=== PATIENT | female | born 1990 | race Caucasian/White ===

== ENCOUNTER 2021-07-05 10:41 | Emergency (ER) | payer OTHER, SELFPAY ==
--- OUTSIDE RECORDS SUMMARY | 2021-07-05 10:43 | XMS REPORT | Continuity of Care Document ---
:1990 Author Organization [facility] t Address [address] [place] [address] Care Team Providers Name Role Phone Asked, Pcp Primary Care Physician Unavailable Surya Attending Clinician Unavailable CHANELLE Attending Clinician Unavailable Surya Admitting Clinician Unavailable CHANELLE Admitting Clinician Unavailable Payers Payer Name Policy Type Policy Number Effective Date Expiration Date [facility] [id number] CHOICE (MEDICAID REPLACEMENT - HMO) Problems Condition Condition Condition Status Onset Resolution Last Treating Co mments Source Name Details Category Date Date Treatment Clinician Date History of History of Problem Active [facility] depression Depression 9-07 da 00:00: Medical 00 Group Candidiasi Candidiasi Problem Active [facility] s of skin s of Skin 8- da 00:00: Medical 00 Group Problem Active M [facility] care Care 8-21 da 00:00: Medical 00 Group Klebsiella Klebsiella Problem Active M [facility] cystitis Cystitis 7-25 da 00:00: Medical 00 Group Candidiasi Candidiasi Problem Active M [facility] s of s of 7-23 da vagina Vagina 00:00: Medical 00 Group Proteinuri Proteinuri Problem Active M [facility] a a 7-23 da 00:00: Medical 00 Group Bacterial Bacterial Problem Active [facility] vaginosis Vaginosis 6-21 da in in 00:00: Medical 00 Grou p Viral Viral Problem Active [facility] upper Upper 6-12 da respirator Respirator 00:00: Me dical y tract y Tract 00 Group infection Infection Abnormal Abnormal Problem Active [facility] glucose Glucose 6-12 da tolerance Tolerance 00:00: Medi melissa test Test 00 Group during During - baby not - Baby Not yet Yet delivered Delivered Bleeding Bleeding Problem Active [facility] from from 5-07 da female Female 00:00: Medical genital Genital 00 Group tract Tract during During Gastroesop Gastroesop Problem Active [facility] hageal hageal 4-20 da reflux Reflux 00:00: Medical disease Disease 00 Group without without esophagiti Esophagiti s s Mixed Mixed Problem Active [facility]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 Social History Social Habit Start Date Stop Date Quantity Comments Source History [facility] Anabaptism Alcohol Binge Hospital History [facility] Anabaptism Alcohol Std Drinks Hospit al History [facility] 2020-01-25 2020-01-25 1 [facility] Alcohol Frequency 00:00:00 00:00:00 Hospita l Tobacco use and 2020-01-24 2020-01-24 Never used [facility]ab[facility]ism exposure 00:00:00 00:00:00 Hospital Alcohol intake 2020-01-24 2020-01-24 Current drinker [facility]o dist 00:00:00 00:00:00 of alcohol Hospital (finding) Alcohol Comment 2020-01-24 2020-01-24 socially [facility]abaptism 00:00:00 00:00:00 Hospital Sex Assigned At [birth year] [facility] 00:00:00 00:00:00 Hospital Smoking Status Start Date Stop Date Source Heavy Tobacco Smoker [facility] Never smoker [facility] Medications Ordered Filled Start Stop Current Ordering Indication Dosage Frequency Signature Comments Components Source Medication Medication Date Date Medication? Clinician (SIG) Name Name No known No Methodi medications [facility] fluocinolon fluocinolon No fluocinolo [facility] acetonide e acetonide ne d a oil 0.01 % oil 0.01 % acetonide Medical ear drops ear drops oil 0.01 % Group INSTILL 5 INSTILL 5 ear drops DROPS INTO DROPS INTO INSTILL 5 AFFECTED AFFECTED DROPS INTO EAR(S) BY EAR(S) BY AFFECTED OTIC ROUTE OTIC ROUTE EAR(S) BY 2 TIMES PER 2 TIMES PER OTIC ROUTE DAY DAY 2 TIMES PER DAY mupirocin 2 mupirocin 2 No mupirocin [facility] % topical % topical 2 % da ointment ointment topical Medi melissa APPLY A APPLY A ointment Group SMALL SMALL APPLY A AMOUNT TO AMOUNT TO SMALL THE THE AMOUNT TO AFFECTED AFFECTED THE AREA BY AREA BY AFFECTED TOPICAL TOPICAL AREA BY ROUTE 2 ROUTE 2 TOPICAL TIMES PER TIMES PER ROUTE 2 DAY DAY TIMES PER DAY Vital Signs Vital Name Observation Time Observation Value Comments Source BP Diastolic 2021-04-06 00:00:00 88 mm[Hg] [facility] Height 2021-04-06 00:00:00 67 [in_i] [facility] BMI (Body Mass 2021-04-06 00:00:00 41.2 kg/m2 [facility] 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) Group BP Systolic 2021-04-06 00:00:00 128 mm[Hg] [facility] Body Weight 2021-04-06 00:00:00 263 [lb_av] [facility] BP Systolic 2020-12-18 00:00:00 123 mm[Hg] [facility] Body Weight 2020-12-18 00:00:00 257 [lb_av] [facility] BP Diastolic 2020-12-18 00:00:00 83 mm[Hg] [facility] Height 2020-12-18 00:00:00 67 [in_i] [facility] BMI (Body Mass 2020-12-18 00:00:00 40.3 kg/m2 [facility] 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) Group BP Diastolic 2020-06-09 00:00:00 74 mm[Hg] [facility] Height 2020-06-09 00:00:00 67 [in_i] [facility] BMI (Body Mass 2020-06-09 00:00:00 37.8 kg/m2 [facility] 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) Group BP Systolic 2020-06-09 00:00:00 108 mm[Hg] [facility] Body Weight 2020-06-09 00:00:00 241.1 [lb_av] [facility] BP Diastolic 2020-05-27 00:00:00 84 mm[Hg] [facility] Height 2020-05-27 00:00:00 67 [in_i] [facility] BMI (Body Mass 2020-05-27 00:00:00 37.6 kg/m2 [facility] 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) Group BP Systolic 2020-05-27 00:00:00 123 mm[Hg] [facility] Body Weight 2020-05-27 00:00:00 240 [lb_av] [facility] BP Diastolic 2020-05-20 00:00:00 76 mm[Hg] [facility] Height 2020-05-20 00:00:00 67 [in_i] [facility] BMI (Body Mass 2020-05-20 00:00:00 37.7 kg/m2 [facility] 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) Group BP Systolic 2020-05-20 00:00:00 120 mm[Hg] [facility] Body Weight 2020-05-20 00:00:00 240.5 [lb_av] [facility] BP Diastolic 2020-04-14 00:00:00 78 mm[Hg] [facility] Height 2020-04-14 00:00:00 67 [in_i] [facility] BMI (Body Mass 2020-04-14 00:00:00 37.7 kg/m2 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) Group BP Systolic 2020-04-14 00:00:00 113 mm[Hg] [facility] Body Weight 2020-04-14 00:00:00 241 [lb_av] [facility] Procedures Procedure Date / Time Performed Performing Clinician Olga e Delivery 2018-03-20 00:00:00 [facility] Tubal Ligation 2018-03-20 00:00:00 [facility] Delivery 2015-08-14 00:00:00 [facility] Delivery 2011-08-14 00:00:00 [facility] Plan of Care Planned Activity Planned Date Details Comments Source Future Scheduled Test COVID-19 VACCINE (1) [facility] [code = COVID-19 VACCINE (1)] Future Scheduled Test Hepatitis C screening [facility] (procedure) [code = 772017552] Future Scheduled Test Screening for [facility] malignant neoplasm of cervix (procedure) [code = 956719745] Future Scheduled Test INFLUENZA VACCINE [facility] [code = INFLUENZA VACCINE] Encounters Start End Encounter Admission Attending Care Care Encounter Source Date/Time Date/Time Type Type Clinicians Facility Department ID 2021-06-30 Outpatient [facility] 12:20:[facility] 2021-06-30 Outpatient [facility]W [facility] [id number] [facility] 11:28:21 [facility] 2021-06-30 Outpatient Yan[facility]W [facility] [id number] [facility] 10:03:59 [facility] 2021-06-30 Outpatient Yan_W MM[facility] MMG [id number] [facility] 09:42:47 [facility] 2021-06-30 Outpatient Yan_W [facility] MMG [id number] [facility] 09:22:11 [facility] 2021-06-30 Outpatient Yan_W MMG MMG [id number] [facility] 08:47:40 [facility] 2021-06-30 Outpatient Yan_W MMG MMG [id number] [facility] 08:24:09 1008 [facility] Group 2021-06-30 Outpatient Yan_W MMG MMG [id number] [facility] 08:18:37 1007 [facility] Group 2021-06-30 Outpatient Yan_W MMG MMG [id number] [facility] 07:05:11 0917 Medical Group 2021-06-30 Outpatient Yan_W MMG MMG [id number] [facility] 06:38:16 0910 [facility] Group 2021-06-30 Outpatient Yan_W MMG MMG [id number] [facility] 06:19:26 0903 [facility] Group 2021-06-30 Outpatient Yan_W MMG MMG [id number] [facility] 06:11:27 0901 [facility] Group 2021-06-30 Outpatient Yan_W MMG MMG [id number] [facility] 05:55:02 0827 Medical [facility] 2021-06-29 Outpatient Yan_W MMG MMG [id number] [facility] 14:03:24 0824 Medical Group 2021-06-28 Outpatient DICLEMENTE_ [facility] [id number] [facility] 02:21:[address] [place] [address] Program 2021-06-27 Outpatient Yan_W MMG MMG [id number] [facility] 10:24:53 0511 Medical [facility] 2021-06-27 Outpatient Yan_W MMG MMG [id number] [facility] 06:10:31 0507 Medical Group 2021-06-25 [place] Yan_[place] [id number] [facility] 20:06:54 0223 Medical Group 2021-04-06 2021-04-06 IESHA Talavera [place] - [id number] [facility] 00:00:00 00:00:00 : Carlee Overton [facility] [address] [place] [address], Otolaryngol EDY [facility] [phone] , Ph. 2020-12-18 2020-12-18 IESHA Talavera [place] - [id number] [facility] 00:00:00 00:00:00 : Carlee Overton [facility] [address], [facility], [place] [address] , Ph. 2020-06-09 2020-06-09 IESHA Tala[place]a [place] - [id number] [facility] 00:00:00 00:00:00 MD: Carlee [facility] [address], [facility], [place] [address] , Ph. 2020-05-27 2020-05-27 IESHA [place] - [id number] [facility] 00:00:00 00:00:00 MD: Carlee [facility] [address], [facility], [place] [address] , Ph. 2020-05-20 2020-05-20 IESHA [place] - [id number] [facility] 00:00:00 00:00:00 MD: Carlee [facility] [address], [facility], [place] [id number] , Ph. 2020-04-14 2020-04-14 IESHA [place]ala[place]a [place] - [id number] [facility] 00:00:00 00:00:00 MD: Carlee [facility] [address], [facility], [place] [address] , Ph. Results This patient has no known results.
--- NOTE | 2021-07-05 12:02 | RAD REPORT ---
EXAM DESCRIPTION: US - Extremity Nonvascular Complete - 07/05/2021 11:26 am CLINICAL HISTORY: evaluate abscess left breast;Pain;Swelling Pain and swelling COMPARISON: EXT VENOUS W COMPRESSION LAVONNE dated 07/28/2015 TECHNIQUE: Real-time sonographic evaluation of the area of interest was performed. FINDINGS: Large complex fluid-like collection is present retroareolar left breast measuring 4.1 x 3. 6 x 2.9 cm. This is favored to represent an abscess. Followup ultrasound of the left breast after johnna ropriate therapy would be recommended.
--- NOTE | 2021-07-05 12:15 | EDPHYS ---
Physician Documentation [facility] Name: Miryam Dumont Age: 30 yrs Sex: Female : 1990 Arrival Date: 07/05/2021 Time: 10:45 Bed Treatment Private MD: ED Physician Melquiades Huber HPI: 07/05 11:07 This 30 yrs old Female presents to ER via Ambulatory with complaints of Breast Problem, kb Weakness, Nausea. 11:07 The patient presents with an abscess of the left breast, The patient presents with kb cellulitis of the left breast. Description: erythematous, hot, swollen. Onset: The symptoms/episode began/occurred 1 week(s) ago. Possible cause(s): unknown. Associated signs and symptoms: Pertinent positives: erythema, nausea, swelling, Pertinent negatives: discharge, drainage, foreign body sensation, fever, headache, shortness of breath, vomiting. Modifying factors: the symptoms are alleviated by nothing, the symptoms are aggravated by nothing. Severity of symptoms: At their worst the symptoms were moderate, in the emergency department the symptoms are unchanged. The patient has not experienced similar symptoms in the past. The patient has not recently seen a physician. 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 - Social history:: Smoking status: Patient reports the use of cigarette tobacco products, smokes one pack cigarettes per day. ROS: 11:06 Constitutional: Negative for fever, chills, and weight loss. kb 11:06 Abdomen/GI: Positive for nausea, Negative for abdominal pain, vomiting, diarrhea. 11:06 Skin: Positive for erythema, swelling, of the left breast. 11:06 All other systems are negative. Exam: 11:06 Constitutional: This is a well developed, well nourished patient who is awake, alert, kb and in no acute distress. Head/Face: Normocephalic, atraumatic. ENT: Moist Mucous membranes Respiratory: Respirations even and unlabored. No increased work of breathing, no retractions or nasal flaring. MS/ Extremity: Pulses equal, no cyanosis. Neurovascular intact. Full, normal range of motion. Neuro: Awake and alert, GCS 15, oriented to person, place, time, and situation. Moves all extremities. Normal gait. Psych: Awake, alert, with orientation to person, place and time. Behavior, mood, and affect are within normal limits. 11:06 Skin: abscess, that is moderate sized, of the left breast, with fluctuance, with induration, with surrounding cellulitis, that is moderate. Vital Signs: 10:59 BP 135 / 94; Pulse 74; Resp 18 S; Temp 98.0(TE); Pulse Ox 100% on R/A; Weight 111.58 kg aa5 (R); Height 5 ft. 7 in. (170.18 cm) (R); 10:59 Body Mass Index 38.53 (111.58 kg, 170.18 cm) aa5 MDM: 11:01 Patient medically screened. kb 11:06 Data reviewed: vital signs, nurses notes. Data interpreted: Pulse oximetry: on room air kb is 100 %. Interpretation: normal. 12:05 Counseling: I had a detailed discussion with the patient and/or guardian regarding: the kb historical points, exam findings, and any diagnostic results supporting the discharge/admit diagnosis, lab results, radiology results, the need for further work-up and treatment in the hospital. Physician consultation: Norbert Fernandes MD was called at 12:06, regarding consult, and will see patient in inpatient room. 12:06 ED course: Pt does not want to be admitted, states she has 3 kids at home and she has kb the car so her wouldn't be able to come up here. states "I have anxiety and I'm a smoker, I just can't stay here." Pt reports she will come back tomorrow "or something." . 07/05 12:04 Order name: CBC with Diff kb 07/05 11: Order name: Extremity Nonvascular Complete; Complete Time: 12:03 EDMS 07/05 12:04 Order name: IV Start kb Administered Medications: No medications were administered Disposition: 13:40 Co-signature as Attending Physician, Melquiades Huber MD I agree with the assessment and kdr plan of care. Disposition Summary: 11/22/21 12:14 Left Against Medical Advice Location: Home kb Problem: new kb Symptoms: are unchanged kb Condition: Stable kb Diagnosis - Cutaneous abscess of left breast kb Followup: kb - With: Emergency Department - When: As needed - Reason: Worsening of condition Followup: kb - With: Private Physician - When: 2 - 3 days - Reason: Recheck today's complaints, Continuance of care, Re-evaluation by your physician Discharge Instructions: - Discharge Summary Sheet kb - Skin Abscess, [id number] kb Prescriptions: - Cephalexin 500 mg Oral Capsule - take 1 capsule by ORAL route every 8 hours for 10 days; 30 capsule; Refills: 0, kb Product Selection Permitted - Bactrim DS 800-160 mg Oral Tablet - take 1 tablet by ORAL route every 12 hours for 10 days; 20 tablet; Refills: 0, kb Product Selection Permitted Signatures: Dispatcher [employer] EDSophy Mcgrath, HAM-C ROTOPRINTER-Melquiades Olsen MD MD [facility] Michell Murillo, RN RN aa5 Corrections: (The following items were deleted from the chart) 11:22 11:06 Extrmty Nonvasular Limited+[id number] ordered. EDMS EDMS
--- NOTE | 2021-07-05 12:15 | ER ---
Nurse's Notes [facility] Name: Miryam Dumont Age: 30 yrs Sex: Female : 1990 Arrival Date: 07/05/2021 Time: 10:45 Bed Treatment Private MD: Diagnosis: Cutaneous abscess of left breast Presentation: 07/05 10:58 Chief complaint: Patient states: "I had a well woman's exam on June 17 and my aa5 doctor ordered a mammogram for next month but my left boob is swollen and it's red and I get nauseated". Onset of symptoms was June 2021. 10:58 Acuity: ALEXA 3 aa5 10:58 Method Of Arrival: Ambulatory aa5 10:59 Coronavirus screen: At this time, the client does not indicate any symptoms associated aa5 with coronavirus-19. Ebola Screen: No symptoms or risks identified at this time. Initial Sepsis Screen: Does the patient meet any 2 criteria? No. Patient's initial sepsis screen is negative. Does the patient have a suspected source of infection? No. Patient's initial sepsis screen is negative. Risk Assessment: Do you want to hurt yourself or someone else? Patient reports no desire to harm self or others. 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 - Social history:: Smoking status: Patient reports the use of cigarette tobacco products, smokes one pack cigarettes per day. Vital Signs: 10:59 BP 135 / 94; Pulse 74; Resp 18 S; Temp 98.0(TE); Pulse Ox 100% on R/A; Weight 111.58 kg aa5 (R); Height 5 ft. 7 in. (170.18 cm) (R); 10:59 Body Mass Index 38.53 (111.58 kg, 170.18 cm) aa5 ED Course: 10:45 Patient arrived in ED. ds1 10:58 Arm band placed on. aa5 10:59 Triage completed. aa5 11:00 Sophy Alicia FNP-C [facility]. kb 11:00 Melquiades Huber MD is Attending Physician. kb 11:22 Extremity Nonvascular Complete In Process Unspecified. EDMS 12:11 Genevieve Wasserman, RN is Primary Nurse. iw Administered Medications: No medications were administered Outcome: 12:35 Patient left the ED. iw Signatures: Dispatcher [employer] EDUT Sophy Alicia FNP-C TRAFFIC INSPECTOR-Marylin Palacios ds1 Genevieve Wasserman, RN RN Michell Kaufman RN RN aa5
[2021-07-05 12:41] VITALS: BP 135/94; TEMP 98; O2SAT 100
== END 2021-07-05 12:35 | disposition left against medical advice (07) ==
LOC: ER 10:41
DX: N61.1 Abscess of the breast and nipple (principal); F17.210 Nicotine dependence, cigarettes, uncomplicated
CPT/HCPCS: 76881; 99282

== ENCOUNTER 2021-10-21 23:21 | Emergency (ER) | payer OTHER, SELFPAY ==
--- OUTSIDE RECORDS SUMMARY | 2021-10-21 23:24 | XMS REPORT | Continuity of Care Document ---
:1990 Author Organization [facility] t Address [address] [place] [address] Care Team Providers Name Role Phone Asked, Pcp Primary Care Physician Unavailable Surya Attending Clinician Unavailable Attending Clinician Unavailable Singer WEBBER Attending Clinician Светлана HUBER Attending Clinician Unavailable Светлана Huber NP Attending Clinician CHANELLE Attending Clinician Unavailable Surya Admitting Clinician Unavailable CHANELLE Admitting Clinician Unavailable Payers Payer Name Policy Type Policy Number Effective Date Expiration Date S eleazar MEDICAID PENDING PENDING 2021 00:00:00 Advance Directives Directive Decision Effective Termination Comments Source Date Date Healthcare Agents on N/A Univ ersity FileNameReprimary children's hospitalshipHealth[facility] Agent Medical RelationshipCommunicationSdelaware hospital for the chronically ill Branch [facility] Care [phone] (Mobile) Problems Condition Condition Condition Status Onset Resolution Last Treating Co mments Source Name Details Category Date Date Treatment Clinician Date Status Status Disease Active Univers post tubal post tubal 12-13 it y of ligation ligation 00:00: [place] 00 Medical Branch Encounter Encounter Disease Active Uni vers for for 12-13 ity of tobacco tobacco 00:00: [place] use use 00 Medical cessation cessation Bran ch counseling counseling History of History of Disease Active U nivers gestationa gestationa 12-13 it y of l diabetes [place] [facility] BMI BMI Disease Active Univers 40.0-44.9, 40.0-44.9, 12-13 it y of adult adult 00:00: [place] 00 [facility] Branch History of History of Problem Active M atagor depression Depression 9-07 da 00:00: Medical 00 Group Candidiasi Candidiasi Problem Active M at[place]or s of skin s of Skin 8-21 da 00:00: Medical 00 Group Problem Active [...] Tract during During Gastroesop Gastroesop Problem Active M at[place]or hageal hageal 4-20 da reflux Reflux 00:00: Medical disease Disease 00 Group without without esophagiti Esophagiti s s 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 Ask FOB about testing. TAYLOR ALLEN CNM 04/13/2015 8:53 AM History of History of Disease Active U nivers anxiety anxiety 04-12 ity of 00:: Medical Branch History of History of Disease Active U nivers depression depression 04-12 it y of 00:: [place] [facility] 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 04-12 ity of 00:: [place] [facility] Branch Mixed Mixed Problem Active [place] anxiety Anxiety [...] [facility] Medical Group Allergies, Adverse Reactions, Alerts Allergy Allergy Status Severity Reaction(s) Onset Inactive Treating Comm ents Source Name Type Date Date Clinician NO KNOWN Drug Active Univers ALLERGIE Class ity of S [facility] Social History Social Habit Start Date Stop Date Quantity Comments Source History of tobacco 2000-12-13 Cigarette Smoker University of use 00:00:00 [facility] History SDOH [facility] Exposure to Not sure University of SARS-CoV-2 (event) [facility] History SDND [facility] St[facility] Dr[facility] Hospit al Alcohol intake 2021 2021 0 /d University of 00:00:00 00:00:00 [facility] History SDOH 2020-01-25 2020-01-25 1 [facility] Alcohol Frequency 00:00:00 00:00:00 [facility]osp[facility] l Alcohol Comment 2020-01-24 2020-01-24 socially [facility] 00:[facility]00 [facility] Cigarettes smoked 2015-04-08 2015-04-08 Univers ity of current (pack per 00:00:00 00:00:00 ) - Reported Branch Tobacco use and 2015-04-08 2015-04-08 Never used Universit y of exposure 00:00:00 00:00:00 [facility] Sex Assigned At [birth year] Universit y of 00:00:00 00:00:00 [facility] Smoking Status Start Date Stop Date Source Heavy Tobacco Smoker [facility] smoker [facility] Current every day smoker 2015-04-08 00:00:00 Uni versity of [facility] Medications Ordered Filled Start Stop Current Ordering Indication Dosage Frequency Signature Comments Components Source Medication Medication Date Date Medication? Clinician (SIG) Name Name HYDROcodone 2020-08- No 1{tbl} 1 tablet, Univers -acetaminop 09-05 Oral, ity of hen (NORCO 17:30: 16:18 ONCE, 1 Gianfranco as 5) 5-325 mg 00 :00 dose, On Medi melissa tablet 1 [facility]3] tablet 07/06/21 at 1130, HAYDEN morpHINE 2020-08- No 2mg 2 mg, Slow Un annalise injection 2 09-05 IV Push, ity of mg 17:00: 04:59 ONCE, 1 [place] 00 :00 dose, On Medical [facility] Branch 07/06/21 at 1100, Routine lidocaine 2020-08- No 20mL 20 mL, Unive rs 1% (PF) 09-05 Infiltrati ity o f (XYLOCAINE) 16:45: 15:30 on, ONCE, [place] injection 00 :00 1 dose, On Medi melissa 20 mL e Branch 07/06/21 at 1045, Routine ciprofloxac 2020-08- No 400mg 400 mg, IV Univers in in 5 % 09-05 Piggyback, ity of dextrose 03:30: 03:39 [place] (CIPRO) 00 :00 over 60 Medical piggyback Minutes, Branch 400 mg ONCE, 1 dose, On Mon07/05/21 at 2130, HAYDEN<br&gt ;Reason for Anti-Infec tive: Documented Infection< br>Documen jennifer Infection Site: Other
O ther site: breast
Duration of Therapy: 7 days naproxen 2020-08 Yes [id number] 550mg Take 1 Un annalise sodium 1-23 tablet by ity of (ANAPROX 00:00: mouth 2 [place] DS) 550 mg 00 (two) Medical tablet times Branch daily with meals. methylPREDN 2020-08 Yes [id number] Take by Univers ISolone 1-23 mouth ity of (MEDROL, 00:00: SEE-INSTRU Gianfranco as ALEKS,) 4 mg 00 CTIONS. Medica l tablets follow Branch package directions ciprofloxac 2020-08 Yes [id number] 500mg Take 1 Univers in HCl 500 1-23 tablet by ity of mg tablet 00:00: mouth 2 [place] 00 (two) Medical times Branch daily. HYDROcodone 2020-08- No [id number] 1{tbl} Take 1 U nivers -acetaminop 1-23 12- tablet by it y of hen (NORCO) 00:00: 05:59 [place] 10-325 mg 00 :00 every 6 Medical tablet (six) Branch hours as needed for Pain (scale 7-10) for up to 7 days. Indication s: acute pain ciprofloxac 2020-08 Yes [id number] 500mg Take 1 Univers in HCl 500 1-22 tablet by ity of mg tablet 00:00: mouth 2 [place] 00 (two) Medical times Branch daily. ciprofloxac 2020-08- No [id number] 500mg Take 1 Univers in HCl 500 1-22 11-23 tablet by ity of mg tablet 00:00: 00:00 [place] 2 [place] 00 :00 (two) Medical times Branch daily. ciprofloxac 2016-08 Yes 1[drp] Place 1 U nivers in-dexameth 2-11 Drop in ity o f asone 00:00: left ear 2 [place] (CIPRODEX) 00 (two) Medical 0.3-0.1 % times Branch otic drops daily. naproxen 2016-08 Yes 550mg Take 1 Univer s sodium 2-11 tablet by ity of (ANAPROX 00:00: mouth 2 [place] DS) 550 mg 00 (two) Medical tablet times Branch daily with meals. ciprofloxac 2016-08 Yes 1[drp] Place 1 U nivers in-dexameth 09-24 Drop in ity o f asone 00:00: left ear 2 [place] (CIPRODEX) 00 (two) Medical 0.3-0.1 % times Branch otic drops daily. naproxen 2016-08- No 550mg Take 1 Unive rs sodium 09-24 tablet by ity of (ANAPROX 00:00: 00:00 mouth 2 [place] DS) 550 mg 00 :00 (two) Medical tablet times Branch daily with meals. Yes 1{tbl} Take 1 Tab U nivers vitamin 1-31 by mouth ity of w/FA 00:00: daily. [place] (PRENATABS 00 Medical RX) tablet Branch docusate Yes 240mg Take 1 Cap Un annalise calcium 1-31 by mouth ity of (SURFAK) 00:00: once daily Gianfranco as 240 mg 00 as needed Medical capsule for Branch Constipati on. ferrous Yes 325mg Take 1 Tab Uni vers sulfate 325 1-31 by mouth 2 it y of mg (65 mg 00:00: (two) [place] iron) 00 times Medical tablet daily. Branch ibuprofen Yes 600mg Take 1 Tab U nivers (MOTRIN) 1-31 by mouth ity of 600 mg 00:00: every 6 [place] tablet 00 (six) Medical hours as Branch needed for Pain (scale 4-6). Take with food or milk. Yes 1{tbl} Take 1 Tab U nivers vitamin 1-31 by mouth ity of w/FA 00:00: daily. [place] (PRENATABS 00 Medical RX) tablet Branch docusate Yes 240mg Take 1 Cap Un annalise calcium 1-31 by mouth ity of (SURFAK) 00:00: once daily Gianfranco as 240 mg 00 as needed Medical capsule for Branch Constipati on. ferrous Yes 325mg Take 1 Tab Uni vers sulfate 325 1-31 by mouth 2 it y of mg (65 mg 00:00: (two) [place] iron) 00 times Medical tablet daily. Branch ibuprofen Yes 600mg Take 1 Tab U nivers (MOTRIN) 1-31 by mouth ity of 600 mg 00:00: every 6 [place] tablet 00 (six) Medical hours as Branch needed for Pain (scale 4-6). Take with food or milk. No known No [facility] Immun[facility] Ordered Filled Immunization Date Status Comments [facility] Immunization Name Name TDAP 2015-07-23 Completed University 00:00:00 [facility] TDAP 2015-07-23 Completed [facility] 00:00:00 [facility] Influenza Virus 2015-05-19 Completed Universit y of Vaccine Quad IM 3+ 00:00:[address] [facility] Influenza Virus 2015-05-19 Completed Universit y of Vaccine Quad IM 3+ 00:00:[address] [facility] Vital Signs Vital Name Observation Time Observation Value Comments Source BP Diastolic 2021-09-07 00:00:00 80 [facility]Hg[facility] Height 2021-09-07 00:00:00 67 [in_i] [facility] BMI (Body Mass 2021-09-07 00:00:00 38.8 kg/m2 [facility]) Group BP Systolic 2021-09-07 00:00:00 134 mm[Hg] [facility] Body Weight 2021-09-07 00:00:00 247.5 [lb_av] [facility] Systolic blood 2021 13:25:00 127 mm[Hg] Univer sity of pressure [facility] Diastolic blood 2021 13:25:00 93 mm[Hg] Unive rsity of pressure [facility] Heart rate 2021 13:25:00 88 /min [facility] Body temperature 2021 13:25:00 37.17 Deya [facility] [place] [facility] Respiratory rate 2021 13:25:00 18 /min [facility] [place] [facility] Body weight 2021 13:25:00 111.131 kg [facility] BMI 2021 13:25:00 38.37 kg/m2 [facility] Oxygen saturation in 2021 13:25:00 98 /min [facility] Arterial blood by [facility] Pulse oximetry Branch Systolic blood 2021 03:31:00 100 mm[Hg] Univer sity of pressure [facility] Diastolic blood 2021 03:31:00 54 mm[Hg] Unive rsity of [facility] Heart rate 2021 03:31:00 78 /min [facility] Respiratory rate 2021 03:31:00 15 /min [facility] Oxygen saturation in 2021 03:31:00 100 /min [facility] Arterial blood by [facility] Pulse oximetry [place] Body temperature 2021 01:42:00 37 Deya [facility] Body height 2021 01:42:00 170.2 cm [facility] Body weight 2021 01:42:00 111.131 kg [facility] BMI 2021 01:42:00 38.37 kg/m2 [facility] BP Diastolic 2021-04-06 00:00:00 88 mm[Hg] [facility] Height 2021-04-06 00:00:00 67 [in_i] [facility] BMI (Body Mass 2021-04-06 00:00:00 41.2 kg/m2 [facility] Medical Index) Group BP Systolic 2021-04-06 00:00:00 128 mm[Hg] [facility] Body Weight 2021-04-06 00:00:00 263 [lb_av] [facility] BP Diastolic 2020-12-18 00:00:00 83 mm[Hg] [facility] Height 2020-12-18 00:00:00 67 [in_i] [facility] BMI (Body Mass 2020-12-18 00:00:00 40.3 kg/m2 [facility] Medical Index) Group BP Systolic 2020-12-18 00:00:00 123 mm[Hg] [facility] Body Weight 2020-12-18 00:00:00 257 [lb_av] [facility] BP Diastolic 2020-06-09 00:00:00 74 mm[Hg] [facility] Height 2020-06-09 00:00:00 67 [in_i] [facility] BMI (Body Mass 2020-06-09 00:00:00 37.8 kg/m2 [facility] BP Systolic 2020-06-09 00:00:00 108 mm[Hg] [facility] Body Weight 2020-06-09 00:00:00 241.1 [lb_av] [facility] BP Diastolic 2020-05-27 00:00:00 84 mm[Hg] [facility] Height 2020-05-27 00:00:00 67 [in_i] [facility] BMI (Body Mass 2020-05-27 00:00:00 37.6 kg/m2 [facility] BP Systolic 2020-05-27 00:00:00 123 mm[Hg] [facility] Body Weight 2020-05-27 00:00:00 240 [lb_av] [facility] BP Diastolic 2020-05-20 00:00:00 76 mm[Hg] [facility] Height 2020-05-20 00:00:00 67 [in_i] [facility] BMI (Body Mass 2020-05-20 00:00:00 37.7 kg/m2 [facility] BP Systolic 2020-05-20 00:00:00 120 mm[Hg] [facility] Body Weight 2020-05-20 00:00:00 240.5 [lb_av] [facility] BP Diastolic 2020-04-14 00:00:00 78 mm[Hg] [facility] Height 2020-04-14 00:00:00 67 [in_i] [facility] BMI (Body Mass 2020-04-14 00:00:00 37.7 kg/m2 [facility] BP Systolic 2020-04-14 00:00:00 113 mm[Hg] [facility] Body Weight 2020-04-14 00:00:00 241 [lb_av] [facility] Procedures Procedure Date / Time Performed Performing Clinician [facility] NOTICE OF PRIVACY 2021 13:19:12 Doctor Unassigned, No [facility] PRACTICES Name Medical Branch CONSENT/REFUSAL FOR 2021 13:18:42 Doctor Unassigned, No Un iversity of [place] DIAGNOSIS AND Name Medical Branch TREATMENT NOTICE OF PRIVACY 2021 01:34:22 Doctor Unassigned, No Univ ersity [facility] PRACTICES Name Medical Branch CONSENT/REFUSAL FOR 2021 01:34:04 Doctor Unassigned, No Un [facility] [place] DIAGNOSIS AND Name Medical Branch TREATMENT Delivery 2018-03-20 00:00:00 [facility] Tubal Ligation 2018-03-20 00:00:00 [facility] Delivery 2015-08-14 00:00:00 [facility] Delivery 2011-08-14 00:00:00 [facility] Plan of Care Planned Activity Planned Date Details Comments Source Future Scheduled Test COVID-19 VACCINE (1) [facility] [code = COVID-19 VACCINE (1)] Future Scheduled Test Hepatitis C screening [facility] (procedure) [code = 050891404] Future Scheduled Test Screening for [facility] malignant neoplasm of cervix (procedure) [code = 380412034] Future Scheduled Test INFLUENZA VACCINE [facility] [code = INFLUENZA VACCINE] Encounters Start End Encounter Admission Attending Care Care Encounter Source Date/Time Date/Time Type Type Clinicians Facility Department ID 2021-10-14 2021-10-14 Outpatient Yan_W [facility] [id number] [place] 04:17:00 04:17:00 0303 Medical Group 2021-09-09 2021-09-09 Outpatient Yan_W [facility] [id number] [place] 03:22:00 03:22:00 0127 Medical Group 2021-09-07 2021-09-07 Outpatient Yan_W [facility] [id number] [place] 10:48:00 10:48:00 0125 Medical Group 2021-09-07 2021-09-07 IESHA [place] - [id number] [place] 00:00:00 00:00:00 MD: Carlee Overton [facility] [address] [place] [address], Otolaryngol [facility] [address] , Ph. 2021 2021 Emergency X , RUST ERT [id number] Univers 07:28:00 10:28:00 SCHUYLER eisenberg [facility] 2021 2021 Emergency Navarro, RUST [id number] Univers 07:28:00 10:28:00 Schuyler PATTERSON [id number] i [facility] [id number] [facility] [id number] [place] [address] Branch 2021-07-05 2021-07-05 Emergency X [facility] ERT [id number] Univers 19:42:00 22:11:00 [place] eisenberg [facility] 2021-07-05 2021-07-05 [facility] [id number] Univers 19:42:00 22:11:00 [place] [id number] [facility] [id number] [place] [address] Branch 2021-04-06 2021-04-06 Outpatient Yan_W [facility] IESHA [id number] [place] 09:50:00 09:50:00 0824 [facility] 2021-04-06 2021-04-06 IESHA [place] - [id number] [place] 00:00:00 00:00:00 : Carlee [facility]ton [facility] [address], [facility] [place] [facility], Otolaryngol [facility] [address] , Ph. 2020-12-22 2020-12-22 Outpatient Yan_W KEMI IESHA [id number] [place] 06:03:00 06:03:00 0511 [facility] 2020-12-18 2020-12-18 Outpatient Yan_W KEMI IESHA [id number] [place] 12:19:00 12:19:00 0507 [facility] 2020-12-18 2020-12-18 IESHA [place] - [id number] [place] 00:00:00 00:00:00 MD: Carlee [facility] [address], [facility] [place] [facility] Final[facility] DessertsXoinka [address] , Ph. 2020-10-06 2020-10-06 Outpatient Yan_W MMG MMG [id number] [place] 09:57:00 09:57:00 0223 [facility] 2020-07-14 2020-07-14 Outpatient Yan_W MMG MMG [id number] [place] 03:01:00 03:01:00 1201 [facility] 2020-07-01 2020-07-01 Outpatient Yan_W MMG MMG [id number] [place] 02:24:00 02:24:00 1118 [facility] 2020-06-13 2020-06-13 Outpatient Yan_W MMG MMG [id number] [place] 12:03:00 12:03:00 1031 Medical Group 2020-06-09 2020-06-09 Outpatient Yan_W MMG MMG [id number] [place] 12:16:00 12:16:00 1027 [facility] 2020-06-09 2020-06-09 IESHA [place] - [id number] [place] 00:00:00 00:00:00 MD: Carlee [facility] [address], [facility] [address] , Ph. 2020-06-04 2020-06-04 Outpatient Yan_W MMG MMG [id number] [place] 10:44:00 10:44:00 1022 [facility] 2020-05-27 2020-05-27 Outpatient Yan_W MMG MMG [id number] [place] 06:04:00 06:04:00 1014 [facility] 2020-05-27 2020-05-27 IESHA [place] - [id number] [place] 00:00:00 00:00:00 MD: Carlee [facility] [address], [facility] [place] [facility] [address] , Ph. 2020-05-21 2020-05-21 Outpatient Yan_W MMG MMG [id number] [place] 11:45:00 11:45:00 1008 Medical Group 2020-05-20 2020-05-20 Outpatient Yan_W MMG MMG [id number] [place] 07:18:00 07:18:00 1007 Medical Group 2020-05-20 2020-05-20 IESHA [place] - [id number] [place] 00:00:00 00:00:00 MD: [address] [facility] [address], [facility] [place] [facility], Otolaryngol [place] janeneCRUZ [address] , Ph. 2020-04-30 2020-04-30 Outpatient Yan_W MMG MMG [id number] [place] 03:41:00 03:41:00 0917 Medical Group 2020-04-23 2020-04-23 Outpatient Yan_W MMG MMG [id number] [place] 03:25:00 03:25:00 0910 Medical Group 2020-04-16 2020-04-16 Outpatient Yan_W MMG MMG [id number] [place] 02:58:00 02:58:00 0903 Medical Group 2020-04-14 2020-04-14 Outpatient Yan_W MMG MMG [id number] [place] 06:43:00 06:43:00 0901 Medical Group 2020-04-14 2020-04-14 IESHA [place] - [id number] [place] 00:00:00 00:00:00 MD: [address] [facility] [address], [facility] [place] [facility], [facility] [address] , Ph. 2020-04-09 2020-04-09 Outpatient Yan_W MMG MMG [id number] [place] 10:34:00 10:34:00 0827 [facility] 2020-01-24 2020-01-24 Outpatient DICLEMENTE_ [facility] [id number] [place] 11:17:00 11:17:00 JACINTA 06Marie [facility] Program Results This patient has no known results.
[2021-10-22] MEDS ORDERED: MORPHINE 4 MG/ML SYR ONE (01:17)
[2021-10-22] MEDS ORDERED: ONDANSETRON 4 MG/2 ML VIAL ONE (01:18)
[2021-10-22 01:33] LABS: Absolute Lymphocytes (CBC) 1.9 K/uL (0.7-4.9); Hematocrit 41.4 % (36.0-45.0); Lymphocytes % 27.8 % (15.3-44.8); MPV 8.5 fL (7.6-11.3); RBC Red Blood Cell Count 4.81 M/uL (3.86-4.86)
[2021-10-22 01:36] LABS: Urine Blood Trace-intact (Negative); Urine Glucose Negative (Negative); Urine Protein Negative (Negative); Urine pH 6.5 (5.0-7.0)
[2021-10-22 01:40] LABS: Protime INR 1.03
[2021-10-22 01:57] LABS: AST/SGOT 246 U/L (15-37); Albumin 3.5 g/dL (3.4-5.0); Alkaline Phosphatase 382 U/L (45-117); BUN Blood Urea Nitrogen 12 mg/dL (7-18); Bicarbonate 25 mmol/L (21-32); Bilirubin Direct 0.8 mg/dL (0-0.2); Bilirubin Total 1.4 mg/dL (0.2-1.0); Creatine Phosphokinase 62 U/L (26-192); Glucose Level 109 mg/dL (74-106); NT PRO-BNP 32 pg/mL (<125); Potassium 3.5 mmol/L (3.5-5.1); Protein, Total 7.5 g/dL (6.4-8.2); Sodium Level 137 mmol/L (136-145); Troponin High Sensitivity < 3.00 pg/mL (<58.9)
[2021-10-22 01:59] LABS: ALT/SGPT 307 U/L (12-78)
[2021-10-22 02:48] LABS: Barbiturates NEGATIVE (NEGATIVE); Benzodiazepines NEGATIVE (NEGATIVE); Cocaine NEGATIVE (NEGATIVE); METHAMPHETAM NEGATIVE (NEGATIVE); Methadone NEGATIVE (NEGATIVE); Opiates NEGATIVE (NEGATIVE); Phencyclidine NEGATIVE (NEGATIVE); THC Cannibis NEGATIVE (NEGATIVE); Urine Bacteria 20-50 /HPF (<20); Urine Mucus 1+ /HPF (NONE SEEN); Urine RBC <5 /HPF (NONE SEEN)
[2021-10-22] MEDS ORDERED: NA CHLORIDE 0.9% 1,000 ML ONE (04:06)
[2021-10-22 05:00] LABS: SARS-COV-2 RT PCR NEGATIVE (NEGATIVE)
[2021-10-22] MEDS ORDERED: PIPERACIL/TAZO 3.375 GM VIAL IV ONE (06:30)
[2021-10-22] MEDS ORDERED: NA CHLORIDE 0.9% 100 ML IV ONE (06:30)
--- NOTE | 2021-10-22 06:33 | EDPHYS ---
Physician Documentation [facility] Name: Miryam Dumont Age: 31 yrs Sex: Female : 1990 Arrival Date: 10/21/2021 Time: 23:24 Bed 26 Private MD: ED Physician Yair Kelly HPI: 10/22 00:40 This 31 yrs old Female presents to ER via Ambulatory with complaints of Back Pain, mh7 Chest Pain. 00:40 The patient or guardian reports chest pain that is located primarily in the substernal mh7 area. The pain does not radiate. Associated signs and symptoms: Pertinent negatives: abdominal pain, cough, diaphoresis, dizziness, headache, lower extremity pain, lower extremity swelling, lightheadedness, nausea, near syncope, palpitations, recent travel, shortness of breath, syncope, vomiting. The chest pain is described as sharp. Duration: The patient or guardian reports multiple episodes, that are intermittent, that wax and wane, with no pattern. Modifying factors: The symptoms are alleviated by nothing. the symptoms are aggravated by movement, palpation of area. Severity of pain: At its worst the pain was moderate 2 day(s) ago, in the emergency department the pain has improved moderately. States that she was moving furniture than the next day she started feeling pain all over including her chest and back area. She denies any trauma. She denies any fever, cough, abdominal pain, shortness of breath, nausea, vomiting, or other complaints.. 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 - Social history:: Smoking status: Patient reports the use of cigarette tobacco products, smokes one pack cigarettes per day. Patient/guardian denies using alcohol. ROS: 10/22 00:40 Constitutional: Negative for fever, chills, and weight loss, Eyes: Negative for injury, mh7 pain, redness, and discharge, ENT: Negative for injury, pain, and discharge, Neck: Negative for injury, pain, and swelling, Respiratory: Negative for shortness of breath, cough, wheezing, and pleuritic chest pain, Abdomen/GI: Negative for abdominal pain, nausea, vomiting, diarrhea, and constipation, : Negative for injury, bleeding, discharge, and swelling, MS/Extremity: Negative for injury and deformity, Skin: Negative for injury, rash, and discoloration, Neuro: Negative for headache, weakness, numbness, tingling, and seizure, Psych: Negative for depression, anxiety, suicide ideation, homicidal ideation, and hallucinations, Allergy/Immunology: Negative for hives, rash, and allergies, Endocrine: Negative for neck swelling, polydipsia, polyuria, polyphagia, and marked weight changes, Hematologic/Lymphatic: Negative for swollen nodes, abnormal bleeding, and unusual bruising. Exam: 00:40 Constitutional: This is a well developed, well nourished patient who is awake, alert, mh7 and in no acute distress. Head/Face: Normocephalic, atraumatic. Eyes: Pupils equal round and reactive to light, extra-ocular motions intact. Lids and lashes normal. Conjunctiva and sclera are non-icteric and not injected. Cornea within normal limits. Periorbital areas with no swelling, redness, or edema. Neck: Trachea midline, no thyromegaly or masses palpated, and no cervical lymphadenopathy. Supple, full range of motion without nuchal rigidity, or vertebral point tenderness. No Meningismus. Cardiovascular: Regular rate and rhythm with a normal S1 and S2. No gallops, murmurs, or rubs. Normal PMI, no JVD. No pulse deficits. Respiratory: Lungs have equal breath sounds bilaterally, clear to auscultation and percussion. No rales, rhonchi or wheezes noted. No increased work of breathing, no retractions or nasal flaring. Abdomen/GI: Soft, non-tender, with normal bowel sounds. No distension or tympany. No guarding or rebound. No evidence of tenderness throughout. Skin: Warm, dry with normal turgor. Normal color with no rashes, no lesions, and no evidence of cellulitis. MS/ Extremity: Pulses equal, no cyanosis. Neurovascular intact. Full, normal range of motion. Neuro: Awake and alert, GCS 15, oriented to person, place, time, and situation. Cranial nerves II-XII grossly intact. Motor strength 5/5 in all extremities. Sensory grossly intact. Cerebellar exam normal. Normal gait. Psych: Awake, alert, with orientation to person, place and time. Behavior, mood, and affect are within normal limits. 00:40 Chest/axilla: Normal chest wall appearance and motion. Nontender with no deformity. mh7 No lesions are appreciated. Back: No spinal tenderness. No costovertebral tenderness. Full range of motion. 00:40 ECG was reviewed by the Attending Physician. [facility] Vital Signs: 10/21 23:39 BP 144 / 102; Pulse 79; Resp 32; Temp 98.7(TE); Pulse Ox 99% on R/A; Weight 113.4 kg; ld1 Height 5 ft. 7 in. (170.18 cm); Pain 03/23; 10/22 04:28 BP 137 / 87; Pulse 100; Resp 16; Pulse Ox 93% ; cg1 10/21 23:39 Body Mass Index 39.16 (113.40 kg, 170.18 cm) ld1 MDM: 06:24 Differential diagnosis: acute myocardial infarction, acute pericarditis, anxiety, chest mh7 wall pain, cholecystitis, Cholelithiasis costochondritis, esophagitis, gastritis, gastroesophageal reflux disease (GERD), pancreatitis, peptic ulcer disease, pleurisy, pneumonia. HEART Score: History: Slightly Suspicious (0), ECG: Normal (0), Age: < or = 45 years (0), Risk Factors: No Risk Factors Known (0), Troponin: < or = 1 x Normal Limit (0), Total Score = 0. Data reviewed: vital signs, nurses notes, lab test result(s), amylase and lipase, cardiac enzymes, CBC, electrolytes, urinalysis, EKG, radiologic studies, plain films, ultrasound. Data interpreted: Pulse oximetry: on room air is 97 %. Interpretation: normal. Counseling: I had a detailed discussion with the patient and/or guardian regarding: the historical points, exam findings, and any diagnostic results supporting the discharge/admit diagnosis, lab results, radiology results, the need to transfer to another facility, [facility] does not immediately have the required specialist. Response to treatment: the patient's symptoms have markedly improved after treatment. Physician consultation: Joel De Anda MD was contacted at 06:15, regarding patient's condition, after a discussion of the case, a recommendation for transfer for higher level of care is made, Dr. De Anda recommended transfer since we do not have GI coverage to perform ERCP this patient likely has choledocholithiasis with a gallstone in the common bile duct.. Refusal of service: The patient/guardian displays adequate decision making capability and despite a detailed discussion of alternatives, benefits, risks, and consequences refuses: Admission to the hospital for further work-up and treatment, Transfer. 06:27 ED course: Feels better, well-appearing, no acute distress, vital signs stable, no mh7 focal neurological deficits. No chest pain, shortness of breath, nausea, vomiting. Discussed all test results findings with the patient. Test suggests choledocholithiasis. We do not have a car oiler available to perform ERCP procedure for this condition and our surgeon has recommended transfer to a facility that does have the capability. Patient declined transfer and wants to leave AGAINST MEDICAL ADVICE. Explained the possibility of permanent disability and/or if situation worsens and is not taking care of immediately and appropriately. She verbalized that she understood this information is presented. She stated that she will present to another facility herself to have the issue taken care of. She knows she can return to this ED if she changes her mind or with any other concerns.. 06:33 Patient medically screened. 10/22 00:37 Order name: Basic Metabolic Panel; Complete Time: 02:45 10/22 00:37 Order name: CBC with Diff; Complete Time: :58 10/22 00:37 Order name: LFT's; Complete Time: 02:45 10/22 00:37 Order name: Magnesium; Complete Time: 02:45 10/22 00:37 Order name: NT PRO-BNP; Complete Time: 02:45 10/22 00:37 Order name: PT-INR; Complete Time: :58 10/22 00:37 Order name: Troponin HS; Complete Time: :45 10/22 00:37 Order name: Urine Drug Screen; Complete Time: 02:49 10/22 00:37 Order name: Urine Microscopic Only; Complete Time: 02:49 10/22 00:38 Order name: CPK; Complete Time: 02:45 [facility] 10/22 01:36 Order name: Urine Dipstick-Ancillary; Complete Time: 01:58 [facility] 10/22 01:45 Order name: Urine --Ancillary (enter results); Complete Time: 01:58 cs9 10/22 02:48 Order name: Urine Culture [facility] 10/22 02:52 Order name: Lipase [facility] 10/22 00:37 Order name: XRAY Chest (1 view) [facility] 10/22 00:37 Order name: EKG; Complete Time: 00:38 [facility] 10/22 00:37 Order name: Cardiac monitoring; Complete Time: 01:07 [facility] 10/22 00:37 Order name: EKG - Nurse/Tech; Complete Time: 01:07 [facility] 10/22 00:37 Order name: IV Saline Lock; Complete Time: 01:21 [facility] 10/22 00:37 Order name: Labs collected and sent; Complete Time: 01:21 [facility] 10/22 00:37 Order name: O2 Per Protocol; Complete Time: 01:21 [facility] 10/22 00:37 Order name: O2 Sat Monitoring; Complete Time: 01:21 [facility] 10/22 00:37 Order name: Urine Dipstick-Ancillary (obtain specimen); Complete Time: 01:41 [facility] 10/22 02:53 Order name: Lipase; Complete Time: 04:27 [facility] 10/22 02:58 Order name: US Abdomen Limited [facility] 10/22 03:06 Order name: COVID-19/FLU A+B (Document "Date of Onset" if Symptomatic); Complete Time: [facility] 06:15 10/22 00:37 Order name: Urine Test (obtain specimen); Complete Time: 01:41 [facility] EC:40 Rate is 71 beats/min. Rhythm is regular, Normal Sinus Rhythm with No ectopy. QRS [place] [facility] is Normal. VT interval is normal. QRS interval is normal. QT interval is normal. No Q waves. T waves are Normal. No ST changes noted. Clinical impression: Normal ECG. Administered Medications: 01:21 Not Given (Patient Refused): morphine 4 mg IVP once; RASS on ADMIN: Combtv4, Very sv1 Agttd3, Agttd2, Rstlss1, AlertClm0, Drwsy-1, Lt Sdtn-2, Mod Sdtn-3, Dp Sdtn-4, UnArsble-5 01:21 Not Given (Patient Refused): Zofran (Ondansetron) 4 mg IVP once; over 2 minutes sv1 04:07 Drug: NS 0.9% 1000 ml Route: IV; Rate: 1000 ml; Site: right antecubital; sv1 06:32 Follow up: Response: No adverse reaction; IV Status: Completed infusion; IV converted sv1 to saline lock 06:30 Drug: Zosyn (piperacillin-tazobactam) 3.375 grams Route: IVPB; Infused Over: 60 mins; sv1 Site: right antecubital; Disposition Summary: 10/22/21 06:33 Left Against Medical Advice Location: Home [facility] Problem: new [facility] Symptoms: have improved [facility] Condition: Stable [facility] Diagnosis - Chest pain, unspecified [facility] - Cholecystitis, possible choledocholithiasis [facility] Followup: [facility] - With: Private Physician - When: 1 - 2 days - Reason: Worsening of condition, Recheck today's complaints, Continuance of care, Re-evaluation by your physician Followup: [facility] - With: Enzo Serrano MD - When: 1 - 2 days - Reason: Worsening of condition, Recheck today's complaints Followup: [facility] - With: Joel De Anda MD - When: 1 - 2 days - Reason: Worsening of condition, Recheck today's complaints Discharge Instructions: - Discharge Summary Sheet [facility] - Nonspecific Chest Pain, Adult, [id number] [facility] - Cholecystitis, [id number] [facility] Prescriptions: - ondansetron 4 mg Oral tablet,disintegrating - place 1 tablet by TRANSLINGUAL route every 8 hours As needed; 10 tablet; [facility] Refills: 0, Product Selection Permitted - Flagyl 500 mg Oral Tablet - take 1 tablet by ORAL route every 8 hours for 7 days; 21 tablet; Refills: 0, [facility] Product Selection Permitted - Cipro 500 mg Oral Tablet - take 1 tablet by ORAL route every 12 hours for 7 days; 14 tablet; Refills: 0, [facility] Product Selection Permitted - dicyclomine 20 mg Oral Tablet - take 1 tablet by ORAL route 4 times per day As needed; 20 tablet; Refills: 0, [facility] Product Selection Permitted Signatures: Dispatcher [employer] Yair Osborne MD MD mh7 Nataly Reese RN RN ld1 Julius Zaragoza RN RN sv1 Jovita Cortes PA PA sb3
--- NOTE | 2021-10-22 06:33 | ER ---
Nurse's Notes [facility] Name: Miryam Dumont Age: 31 yrs Sex: Female : 1990 Arrival Date: 10/21/2021 Time: 23:24 Bed 26 Private MD: Diagnosis: Chest pain, unspecified;Cholecystitis, possible choledocholithiasis Presentation: 10/21 23:39 Chief complaint: Patient states: Chest pain 8/10 - midsternal pain - intermittent X 3 ld1 days. Coronavirus screen: At this time, the client does not indicate any symptoms associated with coronavirus-19. Ebola Screen: No symptoms or risks identified at this time. Initial Sepsis Screen: Does the patient meet any 2 criteria? No. Patient's initial sepsis screen is negative. Does the patient have a suspected source of infection? No. Patient's initial sepsis screen is negative. Risk Assessment: Do you want to hurt yourself or someone else? Patient reports no desire to harm self or others. Onset of symptoms was October 21, 2021. 23:39 Method Of Arrival: Ambulatory ld1 23:39 Acuity: ALEXA 3 ld1 Triage Assessment: 23:41 General: Appears in no apparent distress. comfortable, Behavior is calm, cooperative, ld1 appropriate for age. Pain: Complains of pain in chest Pain does not radiate. Pain currently is 8 out of 10 on a pain scale. Quality of pain is described as throbbing. Neuro: Level of Consciousness is awake, alert, obeys commands, Oriented to person, place, time, situation. Cardiovascular: Capillary refill < 3 seconds Patient's skin is warm and dry. Rhythm is sinus rhythm. Respiratory: Airway is patent Respiratory effort is even, unlabored, Respiratory pattern is regular, symmetrical. GI: Abdomen is round non-distended. Musculoskeletal: Capillary refill < 3 seconds. 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 - Social history:: Smoking status: Patient reports the use of cigarette tobacco products, smokes one pack cigarettes per day. Patient/guardian denies using alcohol. Assessment: 10/22 11:26 Reassessment: Pt left Annamarie GRIDER RN had pt sign AMA form. jl7 Vital Signs: 10/21 23:39 BP 144 / 102; Pulse 79; Resp 32; Temp 98.7(TE); Pulse Ox 99% on R/A; Weight 113.4 kg; ld1 Height 5 ft. 7 in. (170.18 cm); Pain 03/23; 10/22 04:28 BP 137 / 87; Pulse 100; Resp 16; Pulse Ox 93% ; cg1 10/21 23:39 Body Mass Index 39.16 (113.40 kg, 170.18 cm) ld1 ED Course: 10/21 23:24 Patient arrived in ED. ag3 23:37 Yair Kelly MD is Attending Physician. mh7 23:41 Triage completed. ld1 23:41 Arm band placed on right wrist. ld1 23:44 No provider procedures requiring assistance completed. Inserted saline lock: 20 gauge lr4 in right antecubital area, using aseptic technique. 10/22 01:06 Julius Zaragoza, DAVINA is Primary Nurse. sv1 01:19 XRAY Chest (1 view) In Process Unspecified. EDMS 01:21 Basic Metabolic Panel Sent. sv1 01:21 CBC with Diff Sent. sv1 01:41 Urine Microscopic Only Sent. sv1 01:41 Urine Drug Screen Sent. sv1 01:41 LFT's Sent. sv1 01:41 Magnesium Sent. sv1 01:42 NT PRO-BNP Sent. sv1 01:42 Basic Metabolic Panel Sent. sv1 01:42 Troponin HS Sent. sv1 03:23 US Abdomen Limited In Process Unspecified. EDMS 04:08 COVID-19/FLU A+B (Document "Date of Onset" if Symptomatic) Sent. sv1 04:44 COVID-19/FLU A+B (Document "Date of Onset" if Symptomatic) Sent. sv1 06:31 Enzo Serrano MD is Referral Physician. mh7 06:32 Joel De Anda MD is Referral Physician. 7 Administered Medications: 01:21 Not Given (Patient Refused): morphine 4 mg IVP once; RASS on ADMIN: Combtv4, Very sv1 Agttd3, Agttd2, Rstlss1, AlertClm0, Drwsy-1, Lt Sdtn-2, Mod Sdtn-3, Dp Sdtn-4, UnArsble-5 01:21 Not Given (Patient Refused): Zofran (Ondansetron) 4 mg IVP once; over 2 minutes sv1 04:07 Drug: NS 0.9% 1000 ml Route: IV; Rate: 1000 ml; Site: right antecubital; sv1 06:32 Follow up: Response: No adverse reaction; IV Status: Completed infusion; IV converted sv1 to saline lock 06:30 Drug: Zosyn (piperacillin-tazobactam) 3.375 grams Route: IVPB; Infused Over: 60 mins; sv1 Site: right antecubital; Outcome: 08:30 AMA AMA form signed jl7 08:30 Patient left the ED. jl7 Signatures: Dispatcher [employer] EDMS Reji Lambert RN RN jl7 Marla Jones 3 Yair Kelly MD MD 7 Job Jimenez 1 Nataly Reese RN RN ld1 Julius Zaragoza RN RN sv1 Judy Bourgeois RN RN lr4 Corrections: (The following items were deleted from the chart) 14:12 11:26 AMA AMA form signed jl7 jl7 14:12 11:27 Patient left the ED. jl7 jl7
--- NOTE | 2021-10-22 07:27 | RAD REPORT ---
EXAM DESCRIPTION: RAD - Chest Single View - 10/22/2021 1:19 am CLINICAL HISTORY: CHEST PAIN COMPARISON: Chest Single View dated 06/02/2021; CHEST SINGLE VIEW dated 12/31/2013; CHEST PA AND LAT 2 VIEW dated 07/30/2013; CHEST PA AND LAT 2 VIEW dated 09/20/2011 FINDINGS: Lines: None. Lungs: No evidence of edema or pneumonia. Pleural: No significant pleural effusions or pneumothorax. Cardiac: The heart size is within normal limits. Bones: No acute fractures. Other: IMPRESSION: No acute cardiopulmonary disease.
[2021-10-22 11:37] VITALS: TEMP 98.7
[2021-10-22 11:38] VITALS: BP 137/87; O2SAT 93
--- NOTE | 2021-10-22 13:09 | EKG ---
Test Date: 2021-10-21 Test Time: 23:49:11 Foreign Car Mechanic: Brenda DREW MEASUREMENT RESULTS: Intervals: Rate: 71 NV: 152 QRSD: 86 QT: 378 QTc: 410 [place]: P: 41 NV: 152 QRS: 61 T: 28 INTERPRETIVE STATEMENTS: Normal sinus rhythm with sinus arrhythmia Normal ECG Compared to ECG 07/28/2015 13:05:58 No significant changes Electronically Signed On 10-22-21 13:07:58 INSTRUMENTATION DESIGNER by Duncan Tracy
--- NOTE | 2021-10-22 17:06 | RAD REPORT ---
EXAM DESCRIPTION: US - Abdomen Exam Limited - 10/22/2021 3:24 am CLINICAL HISTORY: The patient is 31 years old and is Female; RUQ Pain;Abd pain TECHNIQUE: Real-time ultrasound of the right upper quadrant with image documentation. COMPARISON: No relevant prior studies available. FINDINGS: Liver: Echogenic liver. No intrahepatic bile duct dilation. Gallbladder: Multiple stones in the gallbladder. Gallbladder wall thickness 3.8 mm. No pericholec ystic fluid. Common bile duct: Common bile duct 4.4 to 7.4 mm in diameter. No stones. No dilation. Pancreas: Pancreas not well visualized. Right kidney: Unremarkable. No stones. No solid mass. No hydronephrosis. IMPRESSION: 1. Cholelithiasis with mild gallbladder wall thickening. Correlate clinically for chol ecystitis. 2. Mildly dilated common bile duct. 3. Fatty liver. Electronically signed by: Kaylin Subramanian MD 10/22/2021 5:15 AM SAP SD ANALYST Due to temporary technical issues with the PACS/Fluency reporting system, reports are being signed by the in house radiologists without review as a courtesy to insure prompt reporting. The interpreting radiologist is fully responsible for the content of the report.
== END 2021-10-22 11:27 | disposition left against medical advice (07) ==
LOC: ER 23:21
DX: K81.9 Cholecystitis, unspecified (principal); F17.210 Nicotine dependence, cigarettes, uncomplicated; Z20.822 Contact with and (suspected) exposure to COVID-19
CPT/HCPCS: 96361; 93005; 87088; 85025; 87086; 80048; 36415; 83735; 82550; 81025; 85610; 80076; 84484; 83690; 83880; 0240U; 80307; 71045; 76705; 96374; 99284; J2543; J7030; 81003; 81015; J2405

== ENCOUNTER 2021-12-02 10:23 | Emergency (ER) | payer OTHER ==
--- OUTSIDE RECORDS SUMMARY | 2021-12-02 10:26 | XMS REPORT | Continuity of Care Document ---
:1990 Author Organization [facility] t Address [address] [place] [address] Care Team Providers Name Role Phone Asked, [...] Date Healthcare Agents on N/A Univ ersity FileName[facility] campusshipHealthCore[facility] Agent Medical RelationshipCommunicationSmiddletown emergency department Branch [facility] Care [phone] (Mobile) Problems Condition Condition Condition Status Onset Resolution Last Treating Co mments Source Name Details Category Date Date Treatment Clinician Date Status Status Disease Active Univers post tubal post tubal 12-13 it y of ligation ligation 00:00: [place] 00 Medical Branch Encounter Encounter Disease Active Uni vers for for 12-13 ity of tobacco tobacco 00:00: [place] use use 00 Medical cessation cessation Bran ch counseling counseling History of History of Disease Active U nivers gestationa gestationa 12-13 it y [place] l [place] [facility] BMI BMI Disease Active Univers 40.0-44.9, 40.0-44.9, 12-13 it y of adult adult 00:00: [place] 00 [facility] Branch History of History of Problem Active [...] depression depression 04-12 it y of 00:: [place] [facility] 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 04-12 ity of 00:: [place] [facility] Branch Mixed Mixed Problem Active [place] anxiety [...] Active Univers ALLERGIE Class ity of S [facility] Social History Social Habit Start Date Stop Date Quantity Comments Source History of tobacco 2000-12-13 Cigarette Smoker University of use 00:00:00 [facility] History SDOH [facility] Exposure to Not sure University of SARS-CoV-2 (event) [facility] History SDNV [facility] Alcohol Std Drinks Hospit al Alcohol intake 2021 2021 0 /d University of 00:00:00 00:00:00 [facility] History SDOH 2020-01-25 2020-01-25 1 [facility] Alcohol Frequency 00:00:00 00:00:00 Hospita l Alcohol Comment 2020-01-24 2020-01-24 socially [facility] 00:00:00 00:00:00 Hospital Cigarettes smoked 2015-04-08 2015-04-08 Univers ity of current (pack per 00:00:00 00:00:00 ) - Reported Branch Tobacco use and 2015-04-08 2015-04-08 Never used Universit y of exposure 00:00:00 00:00:00 [facility] Sex Ass[birth year] At [birth year] Universit y of 00:00:00 00:00:00 [facility] Smoking Status Start Date Stop Date Source Heavy Tobacco Smoker [facility] Never smoker [facility] Current every day smoker 2015-04-08 00:00:00 Uni versity of [facility] Medications Ordered Filled Start Stop Current Ordering Indication Dosage Frequency Signature Comments Components Source Medication Medication Date Date Medication? Clinician (SIG) Name Name HYDROcodone 2020-08- No 1{tbl} 1 tablet, Univers -acetaminop 09-05 Oral, ity of hen (NORCO 17:30: 16:18 ONCE, 1 Gianfranco as 5) 5-325 mg 00 :00 dose, On Medi melissa tablet 1 [facility] tablet 07/06/21 at 1130, HAYDEN morpHINE 2020-08- No 2mg 2 mg, Slow Un annalise injection 2 09-05 IV Push, ity of mg 17:00: 04:59 ONCE, 1 [place] 00 :00 dose, On Medical [facility] 07/06/21 at 1100, Routine lidocaine 2020-08- [...] of Therapy: 7 days naproxen 2020-08 Yes [id number] 550mg Take 1 Un annalise sodium 1-23 tablet by ity of (ANAPROX 00:00: mouth 2 [place] DS) 550 mg 00 (two) Medical tablet times Branch daily with meals. methylPREDN 2020-08 Yes [id number] Take by Univers ISolone 1-23 mouth ity of (MEDROL, 00:00: SEE-INSTRU Gianfranco as ALEKS,) 4 mg 00 CTIONS. Medica l tablets follow Branch package directions ciprofloxac 2020-08 Yes [id number] 500mg Take 1 Univers in HCl 500 [...] Indication s: acute pain ciprofloxac 2020-08 Yes [id number] 500mg Take 1 Univers in HCl 500 1-22 tablet by ity of mg tablet 00:00: mouth 2 [place] 00 (two) Medical times Branch daily. ciprofloxac 2020-08- No [id number] 500mg Take 1 Univers in HCl 500 [...] by ity of (ANAPROX 00:00: mouth 2 [place] DS) 550 mg 00 (two) Medical tablet [...] y of mg (65 mg 00:00: (two) [place] iron) 00 times Medical tablet daily. Branch [...] y of mg (65 mg 00:00: (two) [place] iron) 00 times Medical tablet daily. Branch ibuprofen Yes 600mg Take 1 Tab U nivers (MOTRIN) 1-31 by mouth ity of 600 mg 00:00: every 6 [place] tablet 00 (six) Medical hours as Branch needed for Pain (scale 4-6). Take with food or milk. No known No [facility] Immunizations Ordered Filled Immunization Date Status Comments [facility] e Immunization Name Name TDAP 2015-07-23 Completed University 00:00:00 [facility] TDAP 2015-07-23 [facility] Influenza Virus 2015-05-19 Completed Universit y of Vaccine Quad IM 3+ 00:00:00 [facility] Influenza Virus 2015-05-19 Completed Universit y of Vaccine Quad IM 3+ 00:00:00 [facility] Vital Signs Vital Name Observation Time Observation Value Comments Source BP Diastolic 2021-09-07 00:00:00 80 mm[facility]Hg] [facility] Height 2021-09-07 00:00:00 67 [in_i] [facility] BMI (Body Mass 2021-09-07 00:00:00 38.8 kg/m2 [facility]) Group BP Systolic 2021-09-07 00:00:00 134 mm[Hg] [facility] Body Weight 2021-09-07 00:00:00 247.5 [lb_av] [facility] Systolic blood 2021 13:25:00 127 mm[Hg] Univer sity of pressure [facility] Diastolic blood 2021 13:25:00 93 mm[Hg] Unive rsity of pressure [facility] Heart rate 2021 13:25:00 88 /min [facility] Body temperature 2021 13:25:00 37.17 Deya [facility] Respiratory rate 2021 13:25:00 18 /min [facility] Body weight 2021 13:25:00 111.131 kg [facility] BMI 2021 13:25:00 38.37 kg/m2 [facility] Oxygen saturation in 2021 13:25:00 98 /min [facility] Arterial blood by [facility] Pulse oximetry Branch Systolic blood 2021 03:31:00 100 mm[Hg] Univer sity of pressure [facility] Diastolic blood 2021 03:31:00 54 mm[Hg] Unive rsity of [facility] Heart rate 2021 03:31:00 78 /min [facility] Respiratory rate 2021 03:31:00 15 /min [facility] Oxygen saturation in 2021 03:31:00 100 /min [facility] Arterial blood by [facility] Pulse oximetry [place] Body temperature 2021 01:42:00 37 Deya [facility] Body height 2021 01:42:00 170.2 cm [facility] Body weight 2021 01:42:00 111.131 kg [facility] BMI 2021 01:42:00 38.37 kg/m2 [facility] BP Diastolic 2021-04-06 00:00:00 88 mm[Hg] [facility] Height 2021-04-06 00:00:00 67 [in_i] [facility] BMI (Body Mass 2021-04-06 00:00:00 41.2 kg/m2 [facility] Medical Index) Group BP Systolic 2021-04-06 00:00:00 128 mm[Hg] [facility] Body Weight 2021-04-06 00:00:00 263 [lb_av] [facility] BP Diastolic 2020-12-18 00:00:00 83 mm[Hg] [facility] Height 2020-12-18 00:00:00 67 [in_i] [facility] BMI (Body Mass 2020-12-18 00:00:00 40.3 kg/m2 [facility] Medical Index) Group BP Systolic 2020-12-18 00:00:00 123 mm[Hg] [facility] Body Weight 2020-12-18 00:00:00 257 [lb_av] [facility] BP Diastolic 2020-06-09 00:00:00 74 mm[Hg] [facility] Height 2020-06-09 00:00:00 67 [in_i] [facility] BMI (Body Mass 2020-06-09 00:00:00 37.8 kg/m2 [facility] BP Systolic 2020-06-09 00:00:00 108 mm[Hg] [facility] Body Weight 2020-06-09 00:00:00 241.1 [lb_av] [facility] BP Diastolic 2020-05-27 00:00:00 84 mm[Hg] [facility] Height 2020-05-27 00:00:00 67 [in_i] [facility] BMI (Body Mass 2020-05-27 00:00:00 37.6 kg/m2 [facility] BP Systolic 2020-05-27 00:00:00 123 mm[Hg] [facility] Body Weight 2020-05-27 00:00:00 240 [lb_av] [facility] BP Diastolic 2020-05-20 00:00:00 76 mm[Hg] [facility] Height 2020-05-20 00:00:00 67 [in_i] [facility] BMI (Body Mass 2020-05-20 00:00:00 37.7 kg/m2 [facility] BP Systolic 2020-05-20 00:00:00 120 mm[Hg] [facility] Body Weight 2020-05-20 00:00:00 240.5 [lb_av] [facility] BP Diastolic 2020-04-14 00:00:00 78 mm[Hg] [facility] Height 2020-04-14 00:00:00 67 [in_i] [facility] BMI (Body Mass 2020-04-14 00:00:00 37.7 kg/m2 [facility] BP Systolic 2020-04-14 00:00:00 113 mm[Hg] [facility] Body Weight 2020-04-14 00:00:00 241 [lb_av] [facility] Procedures Procedure Date / Time Performed Performing Clinician [facility] e NOTICE OF PRIVACY 2021 13:19:12 Doctor Unassigned, No [facility] PRACTICES Name Medical Branch CONSENT/REFUSAL FOR 2021 13:18:42 Doctor Unassigned, No [facility] [place] DIAGNOSIS AND Name Medical Branch TREATMENT NOTICE OF PRIVACY 2021 01:34:22 Doctor Unassigned, No Univ ersity [facility] PRACTICES Name Medical Branch CONSENT/REFUSAL FOR 2021 01:34:04 Doctor Unassigned, No [facility] [place] DIAGNOSIS AND Name Medical Branch TREATMENT Delivery 2018-03-20 00:00:00 [facility] Tubal Ligation 2018-03-20 00:00:00 [facility] Delivery 2015-08-14 00:00:00 [facility] Delivery 2011-08-14 00:00:00 [facility] Plan of Care Planned Activity Planned Date Details Comments Source Future Scheduled Test COVID-19 VACCINE (1) [facility] [code = COVID-19 VACCINE (1)] Future Scheduled Test Hepatitis C screening [facility] (procedure) [code = 369363745] Future Scheduled Test Screening for [facility] malignant neoplasm of cervix (procedure) [code = 055946095] Future Scheduled Test INFLUENZA VACCINE [facility] [code = INFLUENZA VACCINE] Encounters Start End Encounter Admission Attending Care Care Encounter Source Date/Time Date/Time Type Type Clinicians Facility Department ID 2021-11-19 2021-11-19 Outpatient Yan_W [facility] [id number] [place] 07:02:00 07:02:00 [facility] 2021-10-14 2021-10-14 [facility] [id number] [place] 04:17:00 04:17:00 [facility] 2021-09-09 2021-09-09 [facility] [id number] [place] 03:22:00 03:22:00 [facility]127 [facility] 2021-09-07 2021-09-07 [facility] [id number] [place] 10:48:00 10:48:00 0125 [facility] 2021-09-07 2021-09-07 IESHA Talavera [place] - [id number] [place] 00:00:00 00:00:00 : 600 [facility] [address], [facility], [place] Maria Del Carmen [address] , Ph. 2021 2021 Emergency X [facility] ERT [id number] Univers 07:28:00 10:28:00 SCHUYLER shereedamir [facility] 2021 2021 Emergency [facility] [id number] Univers 07:28:00 10:28:00 Schuyler PATTERSON [id number] [facility] [id number] [facility] [id number] [address] 2021-07-05 2021-07-05 Emergency X [facility] ERT [id number] Univers 19:42:00 22:11:00 YK eisenberg [facility] 2021-07-05 2021-07-[address] [facility] [id number] Univers 19:42:00 22:11:00 [place] Светлана YESENIA [id number] [facility] [id number] [facility] [id number] [address] 2021-04-06 2021-04-06 Outpatient Yan_W [facility] [id number] [place] 09:50:00 09:50:00 0824 [facility] 2021-04-06 2021-04-06 IESHA Talavera [place] - [id number] [place] 00:00:00 00:00:00 : Carlee [facility] [address], [facility], [place] Maria [place] Carmen [address] , Ph. 2020-12-22 2020-12-22 Outpatient Yan_W [facility] [id number] [place] 06:03:00 06:03:00 0511 [facility] 2020-12-18 2020-12-18 Outpatient Yan_W [facility] [id number] [place] 12:19:00 12:19:00 0507 Medical Group 2020-12-18 2020-12-18 IESHA Talavera [place] - [id number] [place] 00:00:00 00:00:00 MD: Carlee [facility] [address], [facility], [place] [facility] [address] , Ph. 2020-10-06 2020-10-06 Outpatient Yan_W [facility] [id number] [place] 09:57:00 09:57:00 0223 Medical Group 2020-07-14 2020-07-14 Outpatient Yan_W [facility] MM[facility] [id number] [place] 03:01:00 03:01:00 1201 Medical Group 2020-07-01 2020-07-01 Outpatient Yan_W MM[facility] MMG [id number] [place] 02:24:00 02:24:00 1118 Medical Group 2020-06-13 2020-06-13 Outpatient Yan_W MMG MMG [id number] [place] 12:03:00 12:03:00 1031 Medical Group 2020-06-09 2020-06-09 Outpatient Yan_W MMG MMG [id number] [place] 12:16:00 12:16:00 1027 Medical Group 2020-06-09 2020-06-09 IESHA Talavera [place] - [id number] [place] 00:00:00 00:00:00 : Carlee [facility] [address], [facility], Otolaryngol [facility] [address] , Ph. 2020-06-04 2020-06-04 Outpatient Yan_W MM[facility] MMG [id number] [place] 10:44:00 10:44:00 1022 Medical Group 2020-05-27 2020-05-27 Outpatient Yan_W MM[facility] MMG [id number] [place] 06:04:00 06:04:00 1014 Medical Group 2020-05-27 2020-05-27 IESHA Talavera [place] - [id number] [place] 00:00:00 00:00:00 MD: Carlee [facility] [address], [facility], [place] [facility] [address] , Ph. 2020-05-21 2020-05-21 Outpatient Yan_W MMG MMG [id number] [place] 11:45:00 11:45:00 1008 Medical Group 2020-05-20 2020-05-20 Outpatient Yan_W MMG MMG [id number] [place] 07:18:00 07:18:00 1007 Medical Group 2020-05-20 2020-05-20 Terell Js MMG [place] - [id number] [place] 00:00:00 00:00:00 MD: Carlee [facility] [address], [facility] [place] [facility] [address] , Ph. 2020-04-30 2020-04-30 Outpatient Yan_W MMG MMG [id number] [place] 03:41:00 03:41:00 0917 Medical Group 2020-04-23 2020-04-23 Outpatient Yan_W MMG MMG [id number] [place] 03:25:00 03:25:00 0910 Medical Group 2020-04-16 2020-04-16 Outpatient Yan_W MMG MMG [id number] [place] 02:58:00 02:58:00 0903 Medical Group 2020-04-14 2020-04-14 Outpatient Yan_W MMG MMG [id number] [place] 06:43:00 06:43:00 0901 Medical Group 2020-04-14 2020-04-14 Terell Js MMG [place] - [id number] [place] 00:00:00 00:00:00 MD: Carlee [facility] [address], [facility], [place] [facility] [id number] , Ph. 2020-04-09 2020-04-09 Outpatient Yan_W MMG MMG [id number] [place] 10:34:00 10:34:00 0827 [facility] 2020-01-24 2020-01-24 Outpatient DICLEMENTE_ [facility] [id number] [place] 11:17:00 11:17:00 JACINTA 06Marie [facility] Program Results This patient has no known results.
[2021-12-02] MEDS ORDERED: FAMOTIDINE 20 MG/2 ML VIAL IV ONE (10:46)
[2021-12-02] MEDS ORDERED: NA CHLORIDE 0.9% 1,000 ML ONE (10:46)
[2021-12-02 10:52] LABS: Urine Blood Trace-intact (Negative); Urine Glucose Negative (Negative); Urine Protein 1+ (Negative); Urine Specific Gravity 1.015 (1.005-1.030)
[2021-12-02 10:58] LABS: Hematocrit 43.8 % (36.0-45.0); Lymphocytes % 15.6 % (15.3-44.8); MPV 8.2 fL (7.6-11.3); RBC Red Blood Cell Count 5.13 M/uL (3.86-4.86)
[2021-12-02 11:07] LABS: Urine Bacteria <20 /HPF (<20); Urine RBC <5 /HPF (NONE SEEN)
--- NOTE | 2021-12-02 11:11 | RAD REPORT ---
EXAM DESCRIPTION: US - Abdomen Exam Limited - 12/02/2021 10:59 am CLINICAL HISTORY: RUQ ABD PAIN COMPARISON: Abdomen Exam Limited dated 10/22/2021 FINDINGS: The gallbladder demonstrates several shadowing gallstones. No pericholecystic fluid or gal lbladder wall thickening. Common bile duct is mildly enlarged measuring 7 mm in containing several sm all stones. The liver demonstrates no findings of intrahepatic biliary dilatation. IMPRESSION: Cholelithiasis. Choledocholithiasis present.
[2021-12-02 11:16] LABS: Albumin 3.7 g/dL (3.4-5.0); Potassium 3.6 mmol/L (3.5-5.1); Protein, Total 7.8 g/dL (6.4-8.2)
[2021-12-02 11:25] LABS: Urine Specific Gravity/Preg 1.015 (1.005-1.030)
--- NOTE | 2021-12-02 11:54 | RAD REPORT ---
EXAM DESCRIPTION: CTAbdomen Pelvis W Contrast - 12/02/2021 11:46 am CLINICAL HISTORY: Abdominal pain. Abdominal pain, acute, nonlocalized COMPARISON: No comparisons TECHNIQUE: Biphasic CT imaging of the abdomen and pelvis was performed with 100 ml non-ionic IV cont rast. All CT scans are performed using dose optimization technique as appropriate and may include automated exposure control or mA/KV adjustment according to patient size. FINDINGS: The lung bases are clear. The liver, spleen, pancreas, adrenal glands and kidneys are within normal limits. Numerous gallstones are seen in the gallbladder. There is also stone seen in the distal common bile duct. No bowel obstruction, free air, free fluid or abscess. Small fat containing umbilical hernia. The johnna endix is normal. No evidence of significant lymphadenopathy. No suspicious bony findings. 6 cm right ovarian cyst is present. IMPRESSION: Cholelithiasis with choledocholithiasis present. MRCP would be recommended for further a ssessment. 6 cm right ovarian cyst. Pelvic ultrasound followup could be obtained for further evaluation.
[2021-12-02] MEDS ORDERED: METRONIDAZOLE 500mg IVPB 500 MG/100 ML BAG IV ONE (11:58)
[2021-12-02] MEDS ORDERED: NA CHLORIDE 0.9% 100 ML IV ONE (11:58)
[2021-12-02] MEDS ORDERED: CEFTRIAXONE 1000 MG/VIAL ONE (11:58)
--- NOTE | 2021-12-02 12:24 | EDPHYS ---
Physician Documentation [facility] Name: Miryam Dumont Age: 31 yrs Sex: Female : 1990 Arrival Date: 12/02/2021 Time: 10:24 Bed 2 Private MD: ED Physician Brigitte Luna HPI: 12/02 10:45 This 31 yrs old Female presents to ER via EMS with complaints of ABD PAIN. ma2 10:45 Of a 31-year-old female was here last month with choledocholithiasis acute ma2 cholecystitis she was offered to transfer however she left AMA at that time. Patient presents with persistent abdominal pain for the last 2 days on and off, no vomiting diarrhea, no other symptoms. No fever. 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 Flu vaccine is up to date. - Social history:: Smoking status: Reported history of juuling and/or vaping. Patient/guardian denies using alcohol, street drugs, The patient lives with family. - Family history:: not pertinent. ROS: 10:45 Constitutional: Negative for fever, chills, and weight loss, Eyes: Negative for injury, ma2 pain, redness, and discharge. 10:45 All other systems are negative. Exam: 10:45 Constitutional: This is a well developed, well nourished patient who is awake, alert, ma2 and in no acute distress. ENT: Nares patent. No nasal discharge, no septal abnormalities noted. Tympanic membranes are normal and external auditory canals are clear. Oropharynx with no redness, swelling, or masses, exudates, or evidence of obstruction, uvula midline. Mucous membranes moist. Neck: Trachea midline, no thyromegaly or masses palpated, and no cervical lymphadenopathy. Supple, full range of motion without nuchal rigidity, or vertebral point tenderness. No Meningismus. Chest/axilla: Normal chest wall appearance and motion. Nontender with no deformity. No lesions are appreciated. Cardiovascular: Regular rate and rhythm with a normal S1 and S2. No gallops, murmurs, or rubs. Normal PMI, no JVD. No pulse deficits. Respiratory: Lungs have equal breath sounds bilaterally, clear to auscultation and percussion. No rales, rhonchi or wheezes noted. No increased work of breathing, no retractions or nasal flaring. Abdomen/GI: Soft, non-tender, with normal bowel sounds. No distension or tympany. No guarding or rebound. No evidence of tenderness throughout. Skin: Warm, dry with normal turgor. Normal color with no rashes, no lesions, and no evidence of cellulitis. MS/ Extremity: Pulses equal, no cyanosis. Neurovascular intact. Full, normal range of motion. Neuro: Awake and alert, GCS 15, oriented to person, place, time, and situation. Cranial nerves II-XII grossly intact. Motor strength 5/5 in all extremities. Sensory grossly intact. Cerebellar exam normal. Normal gait. Vital Signs: 10:26 BP 120 / 72; Pulse 80; Resp 17; Temp 98.9; Pulse Ox 99% ; Weight 108.86 kg; Height 5 ap3 ft. 7 in. (170.18 cm); 11:29 BP 121 / 85; Pulse 91; Resp 16; Pulse Ox 98% on R/A; jl7 10:26 Body Mass Index 37.59 (108.86 kg, 170.18 cm) ap3 MDM: 10:39 Patient medically screened. ma2 10:45 Differential diagnosis: appendicitis, diverticulitis, gastritis, Irritable bowel ma2 syndrome. Data reviewed: vital signs, nurses notes. 12:22 ED course: accepted by dr. Levy. co2 12/02 10:39 Order name: CBC with Diff; Complete Time: 11:43 [facility] 12/02 10:39 Order name: CMP; Complete Time: 11:43 [facility] 12/02 10:39 Order name: Lipase; Complete Time: 11:43 [facility] 12/02 10:39 Order name: Urine Microscopic Only; Complete Time: 11:43 [facility] 12/02 10:53 Order name: Urine Dipstick-Ancillary; Complete Time: 11:43 EDMS 12/02 10:54 Order name: Urine --Ancillary (enter results); Complete Time: 11:43 em1 12/02 10:39 Order name: CT Abd/Pelvis - IV Contrast Only; Complete Time: 12:17 co2 12/02 10:39 Order name: IV Saline Lock; Complete Time: 10:40 co2 12/02 10:45 Order name: US Abdomen Limited; Complete Time: 11:43 co2 12/02 12:00 Order name: SARS-COV-2 RT PCR (Document "Date of Onset" if Symptomatic) 1 12/02 10:39 Order name: Labs collected and sent; Complete Time: 10:54 co2 12/02 10:40 Order name: Urine Test (obtain specimen); Complete Time: 10:53 ma2 Administered Medications: 10:55 Drug: NS 0.9% 1000 ml Route: IV; Rate: 1 bolus; Site: right antecubital; ap3 14:27 Follow up: IV Status: pt left AMA ap3 10:55 Drug: Pepcid (famotidine) 20 mg Route: IVP; Site: right antecubital; ap3 12:43 Follow up: Response: No adverse reaction ap3 12:00 Drug: Rocephin (cefTRIAXone) 1 grams Route: IV; Rate: calculated rate; Site: right ap3 antecubital; 12:43 Follow up: Response: No adverse reaction; IV Status: Completed infusion ap3 12:43 Drug: Flagyl (metroNIDAZOLE) 500 mg Volume: 100 ml; Route: IVPB; Rate: 200 ml/hr; ap3 Infused Over: 30 mins; Site: right antecubital; 14:26 Follow up: IV Status: pt left AMA ap3 Disposition Summary: 12/02/21 12:23 Transfer Ordered Transfer Location: [facility] ma2 Reason: Higher level of care ma2 Condition: Stable ma2 Problem: new ma2 Symptoms: are unchanged ma2 Accepting Physician: (12/02/21 14:29) aa5 Diagnosis - Other cholelithiasis without obstruction - with choledocolithiasis and elevated ma2 liver function test Forms: - Medication Reconciliation Form ma2 - SBAR form ma2 Signatures: Dispatcher [employer] Michell Wilson RN RN aa5 Brigitte Luna MD MD ma2 Lakshmi Bañuelos RN RN ap3 Corrections: (The following items were deleted from the chart) 14:29 12:23 ma2 aa5
--- NOTE | 2021-12-02 12:24 | ER ---
Nurse's Notes [facility] Name: Miryam Dumont Age: 31 yrs Sex: Female : 1990 Arrival Date: 12/02/2021 Time: 10:24 Bed 2 Private MD: Diagnosis: Other cholelithiasis without obstruction-with choledocolithiasis and elevated liver function test Presentation: 12/02 10:26 Chief complaint: Patient states: she has been having abdominal pain which radiates to ap3 her chest, back, and flank area for approx a month and a half. patient reports being evaluated by the ED previously, and was going to be transferred however her symptoms had resolved so she decided to go home. Patient states when the pain comes on, she rates it a 10/10 and experiences a flush feeling accompanied with sweating. Coronavirus screen: At this time, the client does not indicate any symptoms associated with coronavirus-19. Ebola Screen: No symptoms or risks identified at this time. Initial Sepsis Screen: Does the patient meet any 2 criteria? No. Patient's initial sepsis screen is negative. Does the patient have a suspected source of infection? No. Patient's initial sepsis screen is negative. Risk Assessment: Do you want to hurt yourself or someone else? Patient reports no desire to harm self or others. Onset of symptoms was October 12, 2021. 10:26 Method Of Arrival: EMS: [facility] ap3 10:26 Acuity: ALEXA 3 ap3 Triage Assessment: 10:31 General: Appears in no apparent distress. comfortable, Behavior is calm, cooperative, ap3 appropriate for age. Pain: Complains of pain in abdomen Pain radiates to back and chest Pain began gradually. Neuro: Level of Consciousness is awake, alert, obeys commands, Oriented to person, place, time, situation, Appropriate for age Gait is steady, Speech is normal. Cardiovascular: Patient's skin is warm and dry. Respiratory: Airway is patent Respiratory effort is even, unlabored. GI: Reports lower abdominal pain, upper abdominal pain. 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 Flu vaccine is up to date. - Social history:: Smoking status: Reported history of juuling and/or vaping. Patient/guardian denies using alcohol, street drugs, The patient lives with family. - Family history:: not pertinent. Screenin:31 Abuse screen: Denies threats or abuse. Nutritional screening: No deficits noted. ap3 Tuberculosis screening: No symptoms or risk factors identified. Fall Risk None identified. Assessment: 11:28 Reassessment: notified MD of patients critical lab values for AST and ALT. ap3 11:47 Reassessment: Patient and/or family updated on plan of care and expected duration. Pain ap3 level reassessed. Patient is alert, oriented x 3, equal unlabored respirations, skin warm/dry/pink. 14:20 Reassessment: Pt states "I don't want to be transferred anymore, I just have a lot of aa5 things and I have 3 kids and I'll just get my to take me there over the weekend", asked patient if she would like to speak to the doctor before leaving, pt declined. Dr. Luna was notified and pt signed out AMA.. Vital Signs: 10:26 BP 120 / 72; Pulse 80; Resp 17; Temp 98.9; Pulse Ox 99% ; Weight 108.86 kg; Height 5 ap3 ft. 7 in. (170.18 cm); 11:29 BP 121 / 85; Pulse 91; Resp 16; Pulse Ox 98% on R/A; jl7 10:26 Body Mass Index 37.59 (108.86 kg, 170.18 cm) ap3 ED Course: 10:24 Patient arrived in ED. aa5 10:26 Lakshmi Bañuelos, RN is Primary Nurse. ap3 10:30 Triage completed. ap3 10:30 Inserted saline lock: 20 gauge in right antecubital area, using aseptic technique. ap3 Blood collected. 10:32 Arm band placed on right wrist. ap3 10:32 Patient has correct armband on for positive identification. Bed in low position. Call ap3 light in reach. Side rails up X 1. compliance monitor on. Pulse ox on. NIBP on. Door closed. 10:39 Brigitte Luna MD is Attending Physician. ma2 11:01 US Abdomen Limited In Process Unspecified. EDMS 11:48 CT Abd/Pelvis - IV Contrast Only In Process Unspecified. EDMS 14:19 Report given to DAVINA Osuna at [facility]. ap3 14:20 IV discontinued, intact, bleeding controlled, No redness/swelling at site. Pressure aa5 dressing applied. Administered Medications: 10:55 Drug: NS 0.9% 1000 ml Route: IV; Rate: 1 bolus; Site: right antecubital; ap3 14:27 Follow up: IV Status: pt left AMA ap3 10:55 Drug: Pepcid (famotidine) 20 mg Route: IVP; Site: right antecubital; ap3 12:43 Follow up: Response: No adverse reaction ap3 12:00 Drug: Rocephin (cefTRIAXone) 1 grams Route: IV; Rate: calculated rate; Site: right ap3 antecubital; 12:43 Follow up: Response: No adverse reaction; IV Status: Completed infusion ap3 12:43 Drug: Flagyl (metroNIDAZOLE) 500 mg Volume: 100 ml; Route: IVPB; Rate: 200 ml/hr; ap3 Infused Over: 30 mins; Site: right antecubital; 14:26 Follow up: IV Status: pt left AMA ap3 Outcome: 12:23 ER care complete, transfer ordered by . ma2 14:20 AMA AMA form signed aa5 14:29 Patient left the ED. aa5 Signatures: Dispatcher [employer] EDMS Michell Murillo RN RN aa5 Reji Lambert RN RN jl7 Brigitte Luna MD MD ma2 Lakshmi Bañuelos RN RN ap3 Corrections: (The following items were deleted from the chart) 12:21 11:29 BP 121 / 85; Pulse 19bpm; Resp 16bpm; Pulse Ox 98% RA; ap3 jl7
[2021-12-02 14:42] VITALS: TEMP 98.9
[2021-12-02 14:50] VITALS: BP 121/85; O2SAT 98
== END 2021-12-02 14:29 | disposition short-term general hospital (02) ==
LOC: ER 10:23
DX: K80.20 Calculus of gallbladder without cholecystitis without obstruction (principal); K80.50 Calculus of bile duct without cholangitis or cholecystitis without obstruction; R94.5 Abnormal results of liver function studies; Z20.822 Contact with and (suspected) exposure to COVID-19
CPT/HCPCS: 96365; 96367; 96361; 93005; 85025; 36415; 81025; 83690; 80053; 74177; 76705; 96375; 99284; U0003; Q9967; J7030; J3490; 81003; 81015

== ENCOUNTER 2023-02-26 20:39 | Emergency (ER) | payer OTHER, SELFPAY ==
--- OUTSIDE RECORDS SUMMARY | 2023-02-26 20:43 | XMS REPORT | Continuity of Care Document ---
:1990 Author Organization [facility] t Address [address] [facility] [address] [place] [address] Care Team Providers Name Role Phone Asked, No Pcp Primary Care Physician Unavailable Surya Attending Clinician Unavailable CHANELLE Attending Clinician Unavailable SCHUYLER NAVARRO Attending Clinician Unavailable Schuyler Navarro DO Attending Clinician [place] KINGSTON Attending Clinician Unavailable Ky Kingston NP Attending Clinician Js_Wili Admitting Clinician Unavailable DICOLINDA Admitting Clinician Unavailable Payers Payer Name Policy Type Policy Number Effective Date Expiration Date Brenda bush MEDICAID PENDING PENDING 2021 00:00:00 Problems Condition Condition Condition Status Onset Resolution Last Treating Co mments Source Name Details Category Date Date Treatment Clinician Date Status Status Disease Active Univers post tubal post tubal 12-13 it y of ligation ligation 00:00: [place] [address] Medical Branch Encounter Encounter Disease Active Uni vers for for 12-13 ity of tobacco tobacco 00:00: [place] use use 00 Medical cessation cessation Bran ch counseling counseling History of History of Disease Active U nivers gestationa gestationa 12-13 it y of l diabetes l [place] [facility] [place] BMI BMI Disease Active Univers 40.0-44.9, 40.0-44.9, 12-13 it y of adult adult 00:00: [place] 00 Medical Branch History of History of Problem Active [...] glucose Glucose 6-12 da tolerance Tolerance 00:00: [facility] melissa test Test 00 Group during During [...] Formattin ity of 00:00: g of this [place] 00 note Medical might be Branch different from the original. Ask FOB about testing. 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 04-12 ity of 00:00: [place] [address] Medical Branch Mixed Mixed Problem Active [place] anxiety [...] Active Univers ALLERGIE Class ity of S [facility] Social History Social Habit Start Date Stop Date Quantity Comments Source History of tobacco 2000-12-13 Cigarette Smoker University of use 00:00:00 [facility] Exposure to Not sure [facility] SARS-CoV-2 (event) [facility] History SDOH [facility] History SDOH [facility] Gender identity [facility] Sexual [facility] History of Social 2020-01-31 2020-01-[address] function 00:00:00 00:00:00 Hospital History SDOH 2020-01-25 2020-01-25 1 [facility] Frequency 00:00:00 00:00:00 Hospita l Alcohol intake 2020-01-24 2020-01-24 Current drinker [facility] 00:00:00 00:00:00 of alcohol Hospital (finding) Alcohol Comment 2020-01-24 2020-01-24 socially [facility] 00:[facility]00 Hospital Cigarettes smoked 2015-04-08 2015-04-08 Univers ity of current (pack per 00:00:00 00:00:00 [facility] ) - Reported Branch Tobacco use and 2015-04-08 2015-04-08 Never used Universit y of exposure 00:00:00 00:00:00 [facility] Sex Assigned At [birth year] [facility] 00:00:00 00:00:00 [facility] Smoking Status Start Date Stop Date Source Heavy Tobacco Smoker [facility] Never smoker [facility] Current every day smoker 2015-04-08 00:00:00 Uni versity of [facility] Medications Ordered Filled Start Stop Current Ordering Indication Dosage Frequency Signature Comments Components Source Medication Medication Date Date Medication? Clinician (SIG) Name Name HYDROcodone 2020-08- No 1{tbl} 1 tablet, Univers -acetaminop 09-05 Oral, ity of hen (NORCO 17:30: 16:18 ONCE, 1 Gianfranco as 5) 5-325 mg 00 :00 dose, On [facility] tablet 1 [facility] tablet 07/06/21 at 1130, HAYDEN morpHINE 2020-08- No 2mg 2 mg, Slow Un annalise injection 2 09-05 IV Push, ity of mg 17:00: 04:59 ONCE, 1 [place] 00 :00 dose, On Medical [facility] Branch 07/06/21 at 1100, Routine lidocaine 2020-08- No 20mL 20 mL, Unive rs 1% (PF) 09-05 Infiltrati ity o f (XYLOCAINE) 16:45: 15:30 on, ONCE, [place] injection 00 :00 1 dose, On Medi melissa 20 mL [facility] Branch 07/06/21 at 1045, Routine ciprofloxac 2020-08- No 400mg 400 mg, IV Univers in in 5 % 09-05 Piggyback, ity of dextrose 03:30: 03:39 Administer [place] (CIPRO) 00 :00 over 60 Medical piggyback Minutes, Branch 400 mg ONCE, 1 dose, On 07/05/21 at 2130, HAYDEN<br&gt ;Reason for Anti-Infec tive: Documented Infection< br>Documen jennifer Infection Site: Other
O ther site: breast
Duration of Therapy: 7 days naproxen 2020-08 Yes [id number] 550mg Take 1 Un annalise sodium 1-23 tablet by ity of (ANAPROX 00:00: mouth 2 [place] DS) 550 mg 00 (two) Medical tablet times Branch daily with meals. methylPREDN 2020-08 Yes [id number] Take by Univers ISolone 1-23 mouth ity of (MEDROL, 00:00: SEE-INSTRU Gianfranco as ALEKS,) 4 mg 00 CTIONS. Medica l tablets follow Branch package directions ciprofloxac 2020-08 Yes [id number] 500mg Take 1 Univers in HCl 500 1-23 tablet by ity of mg tablet 00:00: mouth 2 [place] 00 (two) Medical times Branch daily. HYDROcodone 2020-08- No [id number] 1{tbl} Take 1 U nivers -acetaminop 1-23 12-01 tablet by it y of hen (NORCO) 00:00: 05:59 mouth [place] 10-325 mg 00 :00 every 6 Medical tablet (six) Branch hours as needed for Pain (scale 7-10) for up to 7 days. Indication s: acute pain ciprofloxac 2020-08 Yes [id number] 500mg Take 1 Univers in HCl 500 1-22 tablet by ity of mg tablet 00:00: mouth 2 [place] 00 (two) Medical times Branch daily. ciprofloxac 2020-08- No [id number] 500mg Take 1 Univers in HCl 500 [...] No 550mg Take 1 Unive rs sodium 2-11 11-23 tablet by ity of (ANAPROX 00:00: 00:00 mouth 2 [place] DS) 550 mg 00 :00 (two) Medical tablet times Branch daily with meals. Yes 1{tbl} Take 1 Tab U nivers vitamin 1-31 by mouth ity of w/FA 00:00: daily. [place] (PRENATABS 00 Medical RX) tablet Branch docusate Yes 240mg Take 1 Cap Un annalise calcium 1-31 by mouth ity of (SURFAK) 00:00: once daily Gianfranco as 240 mg 00 as needed Medical capsule for Branch Constipati on. ferrous Yes 325mg Take 1 Tab Uni vers sulfate 325 1-31 by mouth 2 it y of mg (65 mg 00:00: (two) [place] iron) 00 times Medical tablet daily. Branch ibuprofen Yes 600mg Take 1 Tab U nivers (MOTRIN) 1-31 by mouth ity of 600 mg 00:00: every 6 [place] tablet 00 (six) Medical hours as Branch needed for Pain (scale 4-6). Take with food or milk. Yes 1{tbl} Take 1 Tab U nivers vitamin 1-31 by mouth ity of w/FA 00:00: daily. [place] (PRENATABS 00 Medical RX) tablet Branch docusate Yes 240mg Take 1 Cap Un annalise calcium 1-31 by mouth ity of (SURFAK) 00:00: once daily Gianfranco as 240 mg 00 as needed Medical capsule for Branch Constipati on. ferrous Yes 325mg Take 1 Tab Uni vers sulfate 325 1-31 by mouth 2 it y of mg (65 mg 00:00: (two) [place] iron) 00 times Medical tablet daily. Branch ibuprofen 2015- Yes 600mg Take 1 Tab U nivers (MOTRIN) 1-31 by mouth ity of 600 mg 00:00: every 6 [place] tablet 00 (six) Medical hours as Branch needed for Pain (scale 4-6). Take with food or milk. No known No [facility] Immunizations Ordered Filled Immunization Date Status Comments Sour e Immunization Name Name [facility] 2015-07-23 Completed [facility] 00:00:00 [facility] TDAP 2015-07-23 Completed [facility] 00:00:00 [facility] Influenza Virus 2015-05-19 Completed Universit y of Vaccine Quad IM 3+ 00:00:00 [facility] Influenza Virus 2015-05-19 Completed Universit y of Vaccine Quad IM 3+ 00:00:00 [facility] Vital Signs Vital Name Observation Time Observation Value Comments Source BP Diastolic 2022-01-26 00:00:00 82 mm[facility]Hg] [facility] Height 2022-01-26 00:00:00 67 [in_i] [facility] BMI (Body Mass 2022-01-26 00:00:00 38.7 kg/m2 [facility]) Group BP Systolic 2022-01-26 00:00:00 135 mm[Hg] [facility] Body Weight 2022-01-26 00:00:00 246.8 [lb_av] [facility] BP Diastolic 2021-09-07 00:00:00 80 mm[Hg] [facility] Height 2021-09-07 00:00:00 67 [in_i] [facility] BMI (Body Mass 2021-09-07 00:00:00 38.8 kg/m2 [facility]) Group BP Systolic 2021-09-07 00:00:00 134 mm[Hg] [facility] Body Weight 2021-09-07 00:00:00 247.5 [lb_av] [facility] Systolic blood 2021 13:25:00 127 mm[Hg] Univer sity of pressure [facility] Diastolic blood 2021 13:25:00 93 mm[Hg] Unive rsity of pressure [place] [facility] Heart rate 2021 13:25:00 88 /min [facility] ty [facility] [place] [facility] Body temperature 2021 13:25:00 37.17 Deya [place] [facility] ersity of [place] [facility] Respiratory rate 2021 13:25:00 18 /min Univ [facility] [place] [facility] Body weight 2021 13:25:00 111.131 kg [facility] [place] [facility] BMI 2021 13:25:00 38.37 kg/m2 [facility] [place] [facility] [place] Oxygen saturation in 2021 13:25:00 98 /min University of Arterial blood by [facility] Pulse oximetry Branch Systolic blood 2021 03:31:00 100 mm[Hg] Univer sity of pressure [place] [facility] [place] Diastolic blood 2021 03:31:00 54 mm[Hg] Unive rsity of [facility] [place] Heart rate 2021 03:31:00 78 /min [facility]i ty [facility] [place] [facility] Respiratory rate 2021 03:31:00 15 /min [place] [facility] ersity [facility] [place] Oxygen saturation in 2021 03:31:00 100 /min University of Arterial blood by [facility] Pulse oximetry Branch Body height 2021 01:42:00 170.2 cm [facility] [place] [facility] Body weight 2021 01:42:00 111.131 kg [facility] [place] [facility] BMI 2021 01:42:00 38.37 kg/m2 [facility] [place] [facility] Body temperature 2021 01:42:00 37 [facility] [place] BP Diastolic 2021-04-06 00:00:00 88 mm[Hg] [facility] Height 2021-04-06 00:00:00 67 [in_i] [facility] BMI (Body Mass 2021-04-06 00:00:00 41.2 kg/m2 [facility]) Group BP Systolic 2021-04-06 00:00:00 128 mm[Hg] [facility] Body Weight 2021-04-06 00:00:00 263 [lb_av] [facility] BP Diastolic 2020-12-18 00:00:00 83 mm[Hg] [facility] Height 2020-12-18 00:00:00 67 [in_i] [facility] BMI (Body Mass 2020-12-18 00:00:00 40.3 kg/m2 [facility] Group BP Systolic 2020-12-18 00:00:00 123 mm[Hg] [facility] Body Weight 2020-12-18 00:00:00 257 [lb_av] [facility] BP Diastolic 2020-06-09 00:00:00 74 mm[Hg] [facility] Height 2020-06-09 00:00:00 67 [in_i] [facility] BMI (Body Mass 2020-06-09 00:00:00 37.8 kg/m2 [facility] Group BP Systolic 2020-06-09 00:00:00 108 mm[Hg] [facility] Body Weight 2020-06-09 00:00:00 241.1 [lb_av] [facility] BP Diastolic 2020-05-27 00:00:00 84 mm[Hg] [facility] Height 2020-05-27 00:00:00 67 [in_i] [facility] BMI (Body Mass 2020-05-27 00:00:00 37.6 kg/m2 [facility] Group BP Systolic 2020-05-27 00:00:00 123 mm[Hg] [facility] Body Weight 2020-05-27 00:00:00 240 [lb_av] [facility] BP Diastolic 2020-05-20 00:00:00 76 mm[Hg] [facility] Height 2020-05-20 00:00:00 67 [in_i] [facility] BMI (Body Mass 2020-05-20 00:00:00 37.7 kg/m2 [facility] Group BP Systolic 2020-05-20 00:00:00 120 mm[Hg] [facility] Body Weight 2020-05-20 00:00:00 240.5 [lb_av] [facility] BP Diastolic 2020-04-14 00:00:00 78 mm[Hg] [facility] Height 2020-04-14 00:00:00 67 [in_i] [facility] BMI (Body Mass 2020-04-14 00:00:00 37.7 kg/m2 [facility]) [facility] BP Systolic 2020-04-14 00:00:00 113 mm[Hg] [facility] Body Weight 2020-04-14 00:00:00 241 [lb_av] [facility] Procedures Procedure Date / Time Performed Performing Clinician Sour e NOTICE OF PRIVACY 2021 13:19:12 Doctor Unassigned, No [facility] [place] PRACTICES Name Medical Branch CONSENT/REFUSAL FOR 2021 13:18:42 Doctor Unassigned, No [facility] [place] DIAGNOSIS AND Name Medical Branch TREATMENT NOTICE OF PRIVACY 2021 01:34:22 Doctor Unassigned, No Univ [facility] [place] PRACTICES Name Medical Branch CONSENT/REFUSAL FOR 2021 01:34:04 Doctor Unassigned, No [facility] [place] DIAGNOSIS AND Name Medical Branch TREATMENT Delivery 2018-03-20 00:00:00 [facility] Tubal Ligation 2018-03-20 00:00:00 [facility] Delivery 2015-08-14 00:00:00 [facility] Delivery 2011-08-14 00:00:00 [facility] Plan of Care Planned Activity Planned Date Details Comments Source Future Scheduled 2023-02-25 COVID-[address] [facility] Test 23:53:59 (#1) [code = COVID-19 VACCINE (#1)] Future Scheduled 2023-02-25 [facility] Test 23:53:59 malignant neoplasm of cervix (procedure) [code = 398669276] Future Scheduled 2023-02-25 [facility]INE [facility] Test 23:53:59 [code = INFLUENZA VACCINE] Future Scheduled [facility] (procedure) [code = 045344609] Future Scheduled [facility] Test malignant neoplasm of cervix (procedure) [code = 096542260] Future Scheduled [facility]ACCINE [facility] Test [code = INFLUENZA VACCINE] Future Scheduled COVID-[address] [facility] Test (1) [code = COVID-19 VACCINE (1)] Encounters Start End Encounter Admission Attending Care Care Encounter Source Date/Time Date/Time Type Type Clinicians Facility Department ID 2022-10-11 2022-10-11 Outpatient Yan_W MMG MMG [id number] [place] 00:00:00 00:00:00 [facility] 2022-09-23 2022-09-23 Outpatient Yan_W MMG MMG [id number] [place] 00:00:00 00:00:00 0210 [facility] 2022-09-01 2022-09-01 Outpatient SFA SFA [id number] [place] 10:16:42 10:16:42 0119 F Qasim 2022-08-03 2022-08-03 Outpatient SFA SFA [id number] [place] 13:26:56 13:26:56 1221 Davis Tripp 2022-07-23 2022-07-23 Outpatient Yan_W MMG MMG [id number] [place] 00:00:00 00:00:00 1210 [facility] 2022-06-05 2022-06-05 Outpatient Yan_W MMG MMG [id number] [place] 00:00:00 00:00:00 1023 [facility] 2022-05-02 2022-05-02 Outpatient Yan_W MMG MMG [id number] [place] 00:00:00 00:00:00 0919 [facility] 2022-03-27 2022-03-27 Outpatient Yan_W MMG MMG [id number] [place] 00:00:00 00:00:00 0814 [facility] 2022-02-25 2022-02-25 Outpatient DICLEMENTE_ MEHOP MEHOP [id number] [place] 03:49:00 03:49:00 JACINTA Angelo [facility] Program 2022-02-21 2022-02-21 Outpatient Yan_W MMG MMG [id number] [place] 01:03:00 01:03:00 0711 [facility] 2022-01-26 2022-01-26 Outpatient Yan_W MMG MMG [id number] [place] 03:10:00 03:10:00 0615 [facility] 2022-01-26 2022-01-26 IESHA Talaver[place] - [id number] [place] 00:00:00 00:00:00 : [facility] [address], [facility], Otolaryngol [place] Maria Del Carmen [address] , Ph. 2021-11-19 2021-11-19 Outpatient Yan_W MMG MMG [id number] [place] 07:02:00 07:02:00 0408 Medical Group 2021-10-14 2021-10-14 Outpatient Yan_W MMG MMG [id number] [place] 04:17:00 04:17:00 0303 [facility] 2021-09-09 2021-09-09 Outpatient Yan_W MMG MMG [id number] [place] 03:22:00 03:22:00 0127 [facility] 2021-09-07 2021-09-07 [place] [id number] [place] 10:48:00 10:48:00 0125 [facility] 2021-09-07 2021-09-07 Terell Weinstein IESHA [place] - [id number] [place] 00:00:00 00:00:00 : [facility] [address], [facility] [place] [facility] [address] , Ph. 2021 2021 Emergency X [facility] ERT [id number] Univers 07:28:00 10:28:00 SCHUYLER eisenberg [facility] 2021 2021 Emergency [facility] [id number] Univers 07:28:00 10:28:00 Schuyler PATTERSON [id number] i ty [facility] [id number] [facility] [id number] [place] [address] Branch 2021-07-05 2021-07-05 Emergency X THEE [facility] ERT [id number] Univers 19:42:00 22:11:00 [place] ity of [facility] 2021-07-05 2021-07-05 Emergency [facility], [facility] [id number] Univers 19:42:00 22:11:00 [place] PATTERSON [id number] ity [facility] [id number] [facility] [id number] [place] [address] Branch 2021-04-06 2021-04-06 Outpatient Yan_W MMG MMG [id number] [place] 09:50:00 09:50:00 0824 Medical Group 2021-04-06 2021-04-06 IESHA [place] - [id number] [place] 00:00:00 00:00:00 : [facility] [address], [facility], [place] [employer] [phone] , Ph. 2020-12-22 2020-12-22 Outpatient Yan_W MMG MMG [id number] [place] 06:03:00 06:03:00 0511 Medical Group 2020-12-18 2020-12-18 [place] [id number] [place] 12:19:00 12:19:00 0507 Medical [facility] 2020-12-18 2020-12-18 IESHA [place] - [id number] [place] 00:00:00 00:00:00 : [facility] [address], [facility], Ot[place]ol [place] ogy-MOB [address] , Ph. 2020-10-06 2020-10-06 Outpatient Yan_W MMG MMG [id number] [place] 09:57:00 09:57:00 0223 Medical Group 2020-07-14 2020-07-14 Outpatient Yan_W MMG MMG [id number] [place] 03:01:00 03:01:00 1201 Medical Group 2020-07-01 2020-07-01 Outpatient Yan_W MMG MMG [id number] [place] 02:24:00 02:24:00 1118 [facility] 2020-06-13 2020-06-13 Outpatient Yan_W MMG MMG [id number] [place] 12:03:00 12:03:00 1031 [facility] 2020-06-09 2020-06-09 Outpatient Yan_W MMG MMG [id number] [place] 12:16:00 12:16:00 1027 [facility] 2020-06-09 2020-06-09 Terell Weinstein MMG [place] - [id number] [place] 00:00:00 00:00:00 MD: [facility] [address], [facility] [address] , Ph. 2020-06-04 2020-06-04 Outpatient Yan_W MMG MMG [id number] [place] 10:44:00 10:44:00 1022 Medical Group 2020-05-27 2020-05-27 Outpatient Yan_W MMG MMG [id number] [place] 06:04:00 06:04:00 1014 [facility] 2020-05-27 2020-05-27 Terelljaret WeinsteinIESHA [place] - [id number] [place] 00:00:00 00:00:00 MD: [facility] [address] [address] , Ph. 2020-05-21 2020-05-21 Outpatient Yan_W MMG MMG [id number] [place] 11:45:00 11:45:00 1008 [facility] 2020-05-20 2020-05-20 Outpatient Yan_W MMG MMG [id number] [place] 07:18:00 07:18:00 1007 [facility] 2020-05-20 2020-05-20 Terelljaret WeinsteinKEMIG [place] - [id number] [place] 00:00:00 00:00:00 MD: [facility] [address], [facility], [place] ogy-[facility] [address] , Ph. 2020-04-30 2020-04-30 Outpatient Yan_W MM MMG [id number] [place] 03:41:00 03:41:00 0917 Medical Group 2020-04-23 2020-04-23 [place] [id number] [place] 03:25:00 03:25:00 0910 Medical Group 2020-04-16 2020-04-16 Outpatient Yan_W MMG MMG [id number] [place] 02:58:00 02:58:00 0903 Medical Group 2020-04-14 2020-04-14 [place] [id number] [place] 06:43:00 06:43:00 0901 Medical [facility] 2020-04-14 2020-04-14 Terell Weinstein MM [place] - [id number] [place] 00:00:00 00:00:00 MD: Carlee [facility]ton [facility] [address], [facility], [place] ogy[facility] [address] , Ph. 2020-04-09 2020-04-09 [id number] [place] 10:34:00 10:34:00 0827 Medical Group 2020-01-24 2020-01-24 Outpatient DICLEMENTE_ [facility] [id number] [place] 11:17:00 11:17:00 JACINTA Ferrer [facility] Program Results This patient has no known results.
[2023-02-26] MEDS ORDERED: KETOROLAC 30 MG/ML INJ ONE (21:02)
--- NOTE | 2023-02-26 21:44 | RAD REPORT ---
EXAM DESCRIPTION: CT - [id number] - 02/26/2023 9:04 pm CLINICAL HISTORY: R Radiculopathy COMPARISON: No comparisons TECHNIQUE: Axial thin cut noncontrast CT images of the head were obtained. Axial thin cut noncontrast CT images of the cervical spine were obtained. Multiplanar reformatted images were generated and reviewed. All CT scans are performed using dose optimization technique as appropriate and may include automated exposure control or mA/KV adjustment according to patient size. FINDINGS: CT HEAD WITHOUT CONTRAST: No acute hemorrhage, hydrocephalus or extra-axial collection is identified.No areas of brain edema or midline shift. Partially calcified left frontal scalp hypo dermal lesion may represent a sebaceous cyst The paranasal sinuses and mastoids are clear.The calvarium is intact. CT CERVICAL SPINE WITHOUT CONTRAST: No fracture or subluxation.No prevertebral soft tissues swelling is identified. IMPRESSION: No acute traumatic intracranial or cervical spine findings.
--- NOTE | 2023-02-26 22:09 | ER ---
Nurse's Notes [facility] Name: Miryam Dumont Age: 32 yrs Sex: Female : 1990 Arrival Date: 02/26/2023 Time: 20:39 Bed 4 Private MD: Diagnosis: Cervical radiculopathy Presentation: 02/26 20:40 Chief complaint: EMS states: pain on the 3rd digit of the right hand since last night. rv constant pain. denies injury. Coronavirus screen: Vaccine status: Patient reports being unvaccinated. Ebola Screen: Patient negative for fever greater than or equal to 101.5 degrees Fahrenheit, and additional compatible Ebola Virus Disease symptoms Patient denies exposure to infectious person. Patient denies travel to an Ebola-affected area in the 21 days before illness onset. Initial Sepsis Screen: Does the patient meet any 2 criteria? No. Patient's initial sepsis screen is negative. Does the patient have a suspected source of infection? No. Patient's initial sepsis screen is negative. Risk Assessment: Do you want to hurt yourself or someone else? Patient reports no desire to harm self or others. Onset of symptoms was February 25, 2023. 20:40 Method Of Arrival: EMS: [facility] rv 20:40 Acuity: ALEXA 4 rv Triage Assessment: 20:42 General: Appears comfortable, Behavior is calm, cooperative. Pain: Complains of pain in rv right hand. Neuro: Level of Consciousness is awake, alert, obeys commands, Oriented to person, place, time, situation. Cardiovascular: Patient's skin is warm and dry. Respiratory: Airway is patent Respiratory effort is even, unlabored. GI: No signs and/or symptoms were reported involving the gastrointestinal system. : No signs and/or symptoms were reported regarding the genitourinary system. Musculoskeletal: Circulation, motion, and sensation intact. Range of motion: intact in all extremities. Historical: - PSHx: 20:42 section; tubal ligation; rv - Immunization history:: Adult Immunizations up to date. - Social history:: Smoking status: Patient reports the use of cigarette tobacco products, smokes one pack cigarettes per day. Screenin:42 [facility] ED Fall Risk Assessment (Adult) History of falling in the last 3 months, rv including since admission No falls in past 3 months (0 pts) Confusion or Disorientation No (0 pts) Intoxicated or Sedated No (0 pts) Impaired Gait No (0 pts) Mobility Assist Device Used No (0 pt) Altered Elimination No (0 pt) Score/Fall Risk Level 0 - 2 = Low Risk Oriented to surroundings, Maintained a safe environment, Educated pt \T\ family on fall prevention, incl call for assistance when getting out of bed, Assessed \T\ reinforced patient's understanding of fall precautions, Provided non-skid footwear, Hourly rounding (assess needs \T\ fall precautionary measures) done, Used ambulatory aids as needed (educated on \T\ assisted with), Used gait belt as appropriate. Abuse screen: Denies threats or abuse. Denies injuries from another. Nutritional screening: No deficits noted. Tuberculosis screening: No symptoms or risk factors identified. Vital Signs: 20:40 BP 141 / 101; Pulse 80; Resp 18; Temp 97.9; Pulse Ox 99% ; Weight 115.67 kg; Height 5 rv ft. 7 in. ; Pain 8/10; 22:26 BP 132 / 101; Pulse 71; Resp 80; Pulse Ox 95% ; vc1 22:30 BP 126 / 89; Pulse 76; Resp 16; Temp 98; Pulse Ox 100% on R/A; rv 20:40 Body Mass Index 39.94 (115.67 kg, 170.18 cm) rv 20:40 Pain Scale: Adult rv ED Course: 20:40 Patient arrived in ED. rv 20:41 Ysabel Duff MD is Attending Physician. sp3 20:42 Triage completed. rv 20:42 Arm band placed on left wrist. rv 20:42 No provider procedures requiring assistance completed. rv 20:43 Patient has correct armband on for positive identification. Bed in low position. Call rv light in reach. Side rails up X 1. 20:43 Provided Education on: covid vaccine. rv 20:50 Carmine Mcdonough, DAVINA is Primary Nurse. rv 21:06 CT Head C Spine In Process Unspecified. EDMS 22:09 Julius Tavarez MD is Referral Physician. sp3 22:30 Patient did not have IV access during this emergency room visit. vc1 Administered Medications: 20:56 Drug: Ketorolac IM 60 mg Route: IM; Site: right gluteus; rv 22:30 Follow up: Response: No adverse reaction rv Medication: 20:43 VIS not applicable for this client. rv Outcome: 22:09 Discharge ordered by . sp3 22:30 Discharged to home ambulatory. vc1 22:30 Condition: good 22:30 Discharge instructions given to patient, Instructed on discharge instructions, follow up and referral plans. medication usage, Demonstrated understanding of instructions, follow-up care, medications, Prescriptions given X 1. 22:30 Patient left the ED. vc1 Signatures: Dispatcher [employer] EDMS Carmine Mcdonough, RN RN rv Ysabel Duff MD MD sp3 Nessa Luna RN RN vc1
--- NOTE | 2023-02-26 22:09 | EDPHYS ---
Physician Documentation [facility] Name: Miryam Dumont Age: 32 yrs Sex: Female : 1990 Arrival Date: 02/26/2023 Time: 20:39 Bed 4 Private MD: ED Physician Ysabel Duff HPI: 02/26 20:53 This 32 yrs old Female presents to ER via EMS with complaints of Numbness in right hand sp3 and fingers. 20:53 32-year-old female with no significant past medical history presents with chief sp3 complaint numbness and mild pain in her middle ring and small fingers of her right hand for approximately 1 week. Patient denies any injury, repetitive movement or traumatic incident. She states that nothing makes it better or worse and symptoms are waxing and waning. She denies any headache or neck pain, chest pain, back pain, shortness of breath, abdominal pain, nausea, vomiting, diarrhea, syncope, other neurological complaints including memory loss, loss of speech, motor weakness, or any other signs or symptoms on review of systems at this time.. Historical: - PSHx: 20:42 section; tubal ligation; rv - Immunization history:: Adult Immunizations up to date. - Social history:: Smoking status: Patient reports the use of cigarette tobacco products, smokes one pack cigarettes per day. ROS: 20:54 Constitutional: Negative for fever, chills, and weight loss, Eyes: Negative for injury, sp3 pain, redness, and discharge, ENT: Negative for injury, pain, and discharge, Neck: Negative for injury, pain, and swelling, Cardiovascular: Negative for chest pain, palpitations, and edema, Respiratory: Negative for shortness of breath, cough, wheezing, and pleuritic chest pain, Abdomen/GI: Negative for abdominal pain, nausea, vomiting, diarrhea, and constipation, Back: Negative for injury and pain, : Negative for injury, bleeding, discharge, and swelling, Skin: Negative for injury, rash, and discoloration, Psych: Negative for depression, anxiety, suicide ideation, homicidal ideation, and hallucinations, Allergy/Immunology: Negative for hives, rash, and allergies, Endocrine: Negative for neck swelling, polydipsia, polyuria, polyphagia, and marked weight changes, Hematologic/Lymphatic: Negative for swollen nodes, abnormal bleeding, and unusual bruising. 20:54 All other systems are negative. Exam: 20:55 Constitutional: This is a well developed, well nourished patient who is awake, alert, sp3 and in no acute distress. Head/Face: Normocephalic, atraumatic. Eyes: Pupils equal round and reactive to light, extra-ocular motions intact. Lids and lashes normal. Conjunctiva and sclera are non-icteric and not injected. Cornea within normal limits. Periorbital areas with no swelling, redness, or edema. ENT: Nares patent. No nasal discharge, no septal abnormalities noted. External auditory canals are clear. Oropharynx with no redness, swelling, or masses, exudates, or evidence of obstruction, uvula midline. Mucous membranes moist. Neck: Trachea midline, no thyromegaly or masses palpated, and no cervical lymphadenopathy. Supple, full range of motion without nuchal rigidity, or vertebral point tenderness. No Meningismus. Chest/axilla: Normal chest wall appearance and motion. Nontender with no deformity. No lesions are appreciated. Cardiovascular: Regular rate and rhythm with a normal S1 and S2. No gallops, murmurs, or rubs. Normal PMI, no JVD. No pulse deficits. Respiratory: Lungs have equal breath sounds bilaterally, clear to auscultation and percussion. No rales, rhonchi or wheezes noted. No increased work of breathing, no retractions or nasal flaring. Abdomen/GI: Soft, non-tender, with normal bowel sounds. No distension or tympany. No guarding or rebound. No evidence of tenderness throughout. Back: No spinal tenderness. No costovertebral tenderness. Full range of motion. Skin: Warm, dry with normal turgor. Normal color with no rashes, no lesions, and no evidence of cellulitis. MS/ Extremity: Pulses equal, no cyanosis. Neurovascular intact. Full, normal range of motion. Psych: Awake, alert, with orientation to person, place and time. Behavior, mood, and affect are within normal limits. 20:55 Neuro: Gait is normal, mental status is normal, cranial nerves II through XII are normal, motor function is normal, pain and temperature is normal, sensory exam is positive for subjective numbness in the median nerve distribution distally in her medial side of her right middle finger, entire small and ring fingers. Patient still has normal two-point discrimination. Proximal exam in the upper arm and shoulder and neck are all normal.. Vital Signs: 20:40 BP 141 / 101; Pulse 80; Resp 18; Temp 97.9; Pulse Ox 99% ; Weight 115.67 kg; Height 5 rv ft. 7 in. ; Pain 8/10; 22:26 BP 132 / 101; Pulse 71; Resp 80; Pulse Ox 95% ; vc1 22:30 BP 126 / 89; Pulse 76; Resp 16; Temp 98; Pulse Ox 100% on R/A; rv 20:40 Body Mass Index 39.94 (115.67 kg, 170.18 cm) rv 20:40 Pain Scale: Adult rv MDM: 20:45 Patient medically screened. sp3 20:56 Data reviewed: vital signs, nurses notes, radiologic studies. ED course: 32-year-old sp3 female with likely radiculopathy in the median nerve pattern. Patient will need outpatient MRI. Today in the ED, we will obtain CT scan of the head and C-spine to make sure there are no gross abnormalities. Ketorolac 60 mg IM will also be administered. DC home on NSAID p.o. and outpatient Ortho and MRI follow-up as needed. I am not highly suspicious for stroke, intracranial hemorrhage, or any other critical diagnoses at this time.. 22:08 ED course: CT scan of the head and C-spine are normal. We will safely discharge patient sp3 home at this time. Will discharge on diclofenac p.o. and orthopedic referral.. 02/26 20:50 Order name: CT Head C Spine; Complete Time: 22:08 sp3 Administered Medications: 20:56 Drug: Ketorolac IM 60 mg Route: IM; Site: right gluteus; rv 22:30 Follow up: Response: No adverse reaction rv Disposition Summary: 02/26/23 22:09 Discharge Ordered Location: Home sp3 Condition: Stable sp3 Diagnosis - Cervical radiculopathy sp3 Followup: sp3 - With: Julius Tavarez MD - When: Upon discharge from the Emergency Department - Reason: Further diagnostic work-up Discharge Instructions: - Discharge Summary Sheet sp3 - Cervical Radiculopathy sp3 Forms: - Medication Reconciliation Form sp3 - Thank You Letter sp3 - Antibiotic Education sp3 - Prescription Opioid Use sp3 - Patient Portal Instructions sp3 Prescriptions: - Diclofenac Sodium 75 mg Oral Tablet Sustained Release - take 1 tablet by ORAL route 2 times per day; 30 tablet; Refills: 0, Product sp3 Selection Permitted Signatures: Dispatcher [employer] Carmine Hall, RN RN Ysabel Styles MD MD sp3
[2023-02-26 23:34] VITALS: BP 126/89; TEMP 98; O2SAT 100
== END 2023-02-26 22:30 | disposition home or self-care (01) ==
LOC: ER 20:39
DX: M54.12 Radiculopathy, cervical region (principal); F17.210 Nicotine dependence, cigarettes, uncomplicated
CPT/HCPCS: 70450; 72125; 96372; 99284

== ENCOUNTER 2024-05-28 06:41 | Emergency (ER) | payer SELFPAY ==
--- NOTE | 2024-05-28 08:10 | EDPHYS ---
Physician Documentation [facility] Name: Miryam Dumont Age: 33 yrs Sex: Female : 1990 Arrival Date: 05/28/2024 Time: 06:41 Bed 13 Private MD: ED Physician Michael Santana HPI: 05/28 11:36 This 33 yrs old Female presents to ER via Ambulatory with complaints of Foreign Body In rt Ear. 11:36 Patient reported history of psoriasis changes of the ear presents to the ED with rt foreign body, reportedly an insect. Patient states that she was able to pull half of it out but the other half remained. Denies other injury, acute complaints, symptoms are mild in severity, no other aggravating or alleviating factors. Historical: - Allergies: 07:10 No Known Allergies; rs5 - PMHx: 07:10 None; rs5 - PSHx: 07:10 section; tubal ligation; rs5 - Immunization history:: Adult Immunizations up to date. - Infectious Disease History:: Denies. - Social history:: Smoking status: Patient denies any tobacco usage or history of. - Family history:: not pertinent. ROS: 11:36 Constitutional: Negative for fever, chills, and weight loss, Skin: Negative for injury, rt rash, and discoloration, Neuro: Negative for headache, weakness, numbness, tingling, and seizure, 11:36 ENT: Positive for ear pain, foreign body sensation, Exam: 11:36 ENT: Macerated skin to the right EAC, insect noted abutting the tympanic membrane. rt 11:36 Constitutional: This is a well developed, well nourished patient who is awake, alert, rt and in no acute distress. Chest/axilla: Normal chest wall appearance and motion. Nontender with no deformity. No lesions are appreciated. Cardiovascular: Regular rate and rhythm with a normal S1 and S2. No gallops, murmurs, or rubs. Normal PMI, no JVD. No pulse deficits. Skin: Warm, dry with normal turgor. Normal color with no rashes, no lesions, and no evidence of cellulitis. MS/ Extremity: Pulses equal, no cyanosis. Neurovascular intact. Full, normal range of motion. Vital Signs: 07:10 BP 141 / 88; Pulse 71; Resp 17; Temp 98(O); Pulse Ox 98% ; rs5 08:16 BP 135 / 81; Pulse 74; Resp 17; Pulse Ox 99% on R/A; rs5 Procedures: 11:36 Foreign Body Removal: an insect, from the right ear canal, by using alligator clamps, rt The patient tolerated the removal poorly, Procedure terminated at the patient's request, did not tolerate irrigation as well, requested antibiotic drops and to follow-up with ENT. MDM: 07:20 Medical Screening Exam initiated rt 11:36 Differential Diagnosis Foreign body. Data reviewed: vital signs, nurses notes. Response rt to treatment: There is no appreciated change of the patient's symptoms at this time. Administered Medications: No medications were administered Disposition Summary: 05/28/24 08:09 Discharge Ordered Notes: Location: Home rt Problem: new rt Symptoms: are unchanged rt Condition: Stable rt Diagnosis - Foreign body in right ear rt Followup: rt - With: Private Physician - When: 1 - 2 days - Reason: Discharge Instructions: - Discharge Summary Sheet rt - Ear Foreign Body rt Forms: - Medication Reconciliation Form rt - Antibiotic Education rt - Prescription Opioid Use rt - Patient Portal Instructions rt - Leadership Thank You Letter rt Prescriptions: - Ciprodex 0.3-0.1 % Otic drops, suspension - instill 4 drops OTIC route every 12 hours for 7 days , for ears ONLY; 1 Each; rt Refills: 0, Product Selection Permitted Signatures: Michael Santana MD MD rt Heri Hightower RN RN rs5
--- NOTE | 2024-05-28 08:25 | ER ---
Nurse's Notes [facility] Name: Miryam Dumont Age: 33 yrs Sex: Female : 1990 Arrival Date: 05/28/2024 Time: 06:41 Bed 13 Private MD: Diagnosis: Foreign body in right ear Presentation: 05/28 07:10 Chief complaint: Patient states: "I felt something crawling in my ear this morning and rs5 I think I may have a bug in my right ear" denies pain. 07:10 Coronavirus screen: At this time, the client does not indicate any symptoms associated rs5 with coronavirus-19. Ebola Screen: No symptoms or risks identified at this time. Initial Sepsis Screen: Does the patient meet any 2 criteria? No. Patient's initial sepsis screen is negative. Does the patient have a suspected source of infection? No. Patient's initial sepsis screen is negative. Risk Assessment: Do you want to hurt yourself or someone else? Patient reports no desire to harm self or others. Onset of symptoms. 07:10 Method Of Arrival: Ambulatory rs5 07:10 Acuity: ALEXA 4 rs5 Historical: - Allergies: 07:10 No Known Allergies; rs5 - PMHx: 07:10 None; rs5 - PSHx: 07:10 section; tubal ligation; rs5 - Immunization history:: Adult Immunizations up to date. - Infectious Disease History:: Denies. - Social history:: Smoking status: Patient denies any tobacco usage or history of. - Family history:: not pertinent. Screenin:10 [facility] ED Fall Risk Assessment (Adult) History of falling in the last 3 months, rs5 including since admission No falls in past 3 months (0 pts) Confusion or Disorientation No (0 pts) Intoxicated or Sedated No (0 pts) Impaired Gait No (0 pts) Mobility Assist Device Used No (0 pt) Altered Elimination No (0 pt) Score/Fall Risk Level 0 - 2 = Low Risk Oriented to surroundings, Maintained a safe environment. Abuse screen: Denies threats or abuse. Nutritional screening: No deficits noted. Tuberculosis screening: No symptoms or risk factors identified. Assessment: 07:05 General: Appears in no apparent distress. uncomfortable, Behavior is calm, cooperative. rs5 Pain: Denies pain. Neuro: Level of Consciousness is awake, alert, obeys commands, Oriented to person, place, time, situation. Cardiovascular: Patient's skin is warm and dry. Respiratory: Airway is patent Respiratory effort is even, unlabored, Respiratory pattern is regular, symmetrical. GI: Abdomen is round non-distended, Abd is soft and non tender X 4 quads. : No signs and/or symptoms were reported regarding the genitourinary system. EENT: Reports "I feel like I have a bug in my right ear". 07:05 Derm: Skin is intact, Skin is dry, Skin is pink, warm \\T\\ dry. Musculoskeletal: Range of rs5 motion: intact in all extremities. 07:15 Reassessment: provider at bedside . rs5 08:23 Reassessment: Patient and/or family updated on plan of care and expected duration. Pain rs5 level reassessed. Patient is alert, oriented x 3, equal unlabored respirations, skin warm/dry/pink. Vital Signs: 07:10 BP 141 / 88; Pulse 71; Resp 17; Temp 98(O); Pulse Ox 98% ; rs5 08:16 BP 135 / 81; Pulse 74; Resp 17; Pulse Ox 99% on R/A; rs5 ED Course: 06:45 Patient arrived in ED. [id number] 06:59 Michael Santana MD is Attending Physician. rt 07:10 Patient has correct armband on for positive identification. Placed in gown. Bed in low rs5 position. Call light in reach. Side rails up X2. 07:10 No provider procedures requiring assistance completed. rs5 07:16 Heri Hightower, DAVINA is Primary Nurse. rs5 08:13 Triage completed. rs5 08:23 Provided Education on: discharge instructions . rs5 08:23 Patient did not have IV access during this emergency room visit. rs5 Administered Medications: No medications were administered Medication: 08:16 VIS not applicable for this client. rs5 Outcome: 08:09 Discharge ordered by . rt 08:23 Discharged to home ambulatory, rs5 08:23 Condition: stable 08:23 Discharge instructions given to patient, family, Instructed on discharge instructions, follow up and referral plans. medication usage, Demonstrated understanding of instructions, follow-up care, medications, Prescriptions given X 1, 08:24 Patient left the ED. rs5 Signatures: Gail Uriarte [email or web address] Michael Santana MD MD rt Heri Hightower, RN RN rs5
[2024-05-28 10:45] VITALS: TEMP 98
[2024-05-28 10:47] VITALS: BP 135/81; O2SAT 99
== END 2024-05-28 08:24 | disposition home or self-care (01) ==
LOC: ER 06:41
DX: T16.1XXA Foreign body in right ear, initial encounter (principal)
CPT/HCPCS: 99283